=== PATIENT | male | born 1950 | race Caucasian/White ===

== ENCOUNTER 2018-10-10 17:08 | Inpatient (IN) | payer MEDICARE, MEDICAID ==
--- OUTSIDE RECORDS SUMMARY | 2018-10-10 17:12 | XMS REPORT | Continuity of Care Document ---
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 Kalyn Benjamin NP Primary Care Physician Unavailable Payers Date Identification Numbers Payment Provider Subscriber Policy Number: [id number] Medicare Gerardo Adams PayID: [id number] [address] [place] [address] Policy Number: [id number] Medicaid Gerardo Adams PayID: [id number] [address] [place] [address] Advance Directives Description No Information Available Problems Date Description Provider Status Onset: 07/25/2017 Essential thrombocythemia Kalyn Benjamin, SURGICAL SERVICES COORDINATOR Active Onset: 07/25/2017 Combined form of senile cataract Kalyn Benjamin, SURGICAL SERVICES COORDINATOR Active Onset: 07/25/2017 Tear film insufficiency ClKalyn jerome, SURGICAL SERVICES COORDINATOR Active Onset: 07/25/2017 Tobacco user Kalyn Benjamin, SURGICAL SERVICES COORDINATOR Active Onset: 07/25/2017 Chronic pain Kalyn Benjamin SURGICAL SERVICES COORDINATOR Active Note: no longer followed by Dr. 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 Onset: 08/28/2017 Chronic myeloproliferative disease Luisana De Leon DO Active Onset: 07/16/2018 Difficulty passing urine Kalyn Benjamin FNP Active Onset: 10/05/2018 Anemia Jose Xiong MD, FACS Active Family History Date Family Member(s) Observation Comments Father due to Pancreatic Cancer () Mother Unknown [place] [facility] Maternal Grandfather due to Unknown Causes () Maternal Grandmother due to Unknown Causes () Social History Type Date Description Comments Sex Unknown Marital Status Single Lives With Alone Diet Patient follows no dietary restrictions 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 Tobacco Use Start: Unknown End: Former Cigarette Smoker on nicotine patch Unknown since beginning of December 2016 ETOH Use Currently consumes 1 beer every few alcohol days Recreational Drug Use Marijuana Tobacco Use Start: Unknown Light tobacco smoker (10 or fewer cigarettes/day) Smoking Status Reviewed: 10/05/18 Light tobacco smoker (10 or fewer cigarettes/day) Allergies, Adverse Reactions, Alerts Date Description Reaction Status Severity Comments 12/29/2016 Tylenol nose runs, congestion Active Medications Medication Date Status Form Strength Qnty SIG Indications Ordering Provider Miralax Active Powder 3350NF 1020uni mix 238 Inga, Beata ts gram bottle Jose, of rafiq FULLER FACS in 64 ounce of gatorade. drink an 8oz glass every 15-20 minutes until gone. Dulcolax Active Tablets DR 5mg 4tabs at 3pm take Beata Xiong 2 dulcolax Jose, tablets at DONTA FULLER 9pm take 2 dulcolax tablets Nicotine Active Patches 14mg/24HR 28units one a day F17.210 ClKenneth jerome 24HR on dry [facility]le [facility] arms, chest or back x 2 month then decrease to 7 mcg daily Z71.6 Aspirin 07/16/2018 Active Tablets 81mg 90tabs [address] Cassidy every day GERALD Mccain Flomax 07/16/2018 Active Capsules 0.4mg 90caps one PO qd R39. Jina Benjamin FNP Norvasc 07/16/2018 Active Tablets 5mg 90tabs one PO qd I10 Kalyn Benjamin FNP Pravastatin Active Tablets 40mg 90tabs Take One Cassidy Sodium Tablet By Omari Mccain Every SURGICAL SERVICES COORDINATOR Day Lisinopril Active Tablets 40mg 90tabs Take One Clune, Tablet By Kalyn Mouth Every SURGICAL SERVICES COORDINATOR Day Omeprazole Active Capsules 40mg 30caps Take One Clune, DR Capsule By Kalyn, Mouth Every SURGICAL SERVICES COORDINATOR Day Tizanidine HCL Active Tablets 4mg 30tabs Take One R51 Clune, Tablet By Kalyn Mouth AT [facility] Bedtime For Sleep as Needed Nicotine 04/16/2018 Hx Patches 21mg/ 42units one a day on F17. Clune, - 24HR 24HR dry hairless [facility] skin of SURGICAL SERVICES COORDINATOR arms, chest or back x 2 month then decrease to 14 mcg daily Amitriptyline 02/28/2018 Hx Tablets 25mg 60tabs 1 by mouth G47. Clune, HCL - [facility] at bedtime SURGICAL SERVICES COORDINATOR if no improvement in 2-3 days, then increase to 2 at night. Nicotine 12/14/2017 Hx Patches 21mg/ 28units one a day on Clune, - 24HR 24HR dry [facility]less [facility] 02/28/2018 skin of SURGICAL SERVICES COORDINATOR arms, chest or back Ergocalciferol 10/29/2017 Hx Capsules 08173 6caps 1 cap po q Boufal, - Unit week Luisana, DO 02/28/2018 Folic Acid 09/22/2017 Hx Tablets 1mg 90tabs 1 tabl by Boufal, - mouth every Luisana, DO 10/12/2017 day Hydrea 08/28/2017 Hx Capsules 500mg 30caps 1 tabl po Boufal, - qod/qd Luisana, DO 10/27/2017 depending on blood work Azithromycin 06/20/2017 Hx Tablets 250mg 6tabs 2 tab by Karley Estrada, - mouth day 1 0 M.D. 06/25/2017 1 tab by mouth day 2-5 Ventolin HFA 06/20/2017 Hx Aerosol 108(9 18gm 2 puffs Karley Estrada, - 0Base every 4 0 M.D. 07/04/2017 ) hours as mcg/A needed for ct cough and wheeze Nicotine 03/28/2017 Hx Patches 7mg/2 21units one patch Z72. Cljustus, - 24HR 4HR placed on 0 [facility], 05/31/2017 dry skin SURGICAL SERVICES COORDINATOR each day Celebrex 01/10/2017 Hx Capsules 100mg 60caps 1 by mouth G89. Clune, - twice a day 29 [facility], 03/28/2017 SURGICAL SERVICES COORDINATOR Trazodone HCL 01/10/2017 Hx Tablets 100mg 90tabs 1 by mouth G47. Clune, - Unknown at bedtime 9 [facility], SURGICAL SERVICES COORDINATOR Seroquel 12/29/2016 Hx Tablets 50mg 90tabs 2-3 tablets G47. Cassidy, - an hour 9 [facility], 01/10/2017 prior to SURGICAL SERVICES COORDINATOR bedtime *in place of Trazodone Trazodone HCL Hx Tablets 100mg 1 by mouth G47. Unknown - at bedtime 9 12/29/2016 Diazepam Hx Tablets 5mg 30tabs 1 by mouth Joseune, - at night [facility], 08/09/2017 SURGICAL SERVICES COORDINATOR Oxycodone HCL Hx 1 tablet by Unknown ER - mouth every 01/10/2017 6 hours Tizanidine HCL Hx Tablets 4mg Take 1 2 1 Unknown - Tablet By 06/20/2017 Mouth Every Evening as Directed Methadone HCL Hx Tablets 5mg Take One Unknown - Tablet By 02/28/2018 Mouth Every 8 Hours as Directed Maximum Daily Dose Ambien Hx Tablets 5mg take one tab Unknown - Unknown by mouth at night as needed as needed insomnia Tizanidine HCL Hx Tablets 4mg Take 1 2 1 Unknown - Tablet By 08/09/2017 Mouth Every Evening as Directed Ambien Hx Tablets 5mg 1 tab by Unknown - mouth every 02/28/2018 night at bedtime as needed insomnia reference #: [id number] Immunizations CPT Code Status Date Vaccine Lot # [id number] Given 07/13/2018 Influenza High Dose 69201 Given 01/23/2017 Pneumococcal Conjugate Vaccine 13 Valent For [id number] Intramuscular Use Vital Signs Date Vital Result Comment 10/05/2018 11:49am BP Systolic 111 mmHg BP Diastolic 72 mmHg Heart Rate 90 /min Respiratory Rate 18 /min Height 70 inches 5'10" Weight 149.00 lb BMI (Body Mass Index) 21.4 kg/m2 BSA (Body Surface Area) 1.84 m2 [place] body weight in kilograms 75 kg 10/02/2018 3:08pm BP Systolic 134 mmHg BP Diastolic 76 mmHg Body Temperature 97.5 F Heart Rate 82 /min Respiratory Rate 18 /min Height 70 inches 5'10" Weight 153.00 lb BMI (Body Mass Index) 22.0 kg/m2 BSA (Body Surface Area) 1.86 m2 [place] body weight in kilograms 75 kg O2 % BldC Oximetry 94 % 07/16/2018 9:57am BP Systolic Sitting Left Arm 138 mmHg BP Diastolic Sitting Left Arm 82 mmHg Heart Rate 88 /min Respiratory Rate 18 /min ` Height 70 inches 5'10" Weight 153.12 lb BMI (Body Mass Index) 22.0 kg/m2 BSA (Body Surface Area) 1.86 m2 [place] body weight in kilograms 75 kg 04/16/2018 9:45am BP Systolic Sitting Left Arm 134 mmHg BP Diastolic Sitting Left Arm 86 mmHg Heart Rate 88 /min Respiratory Rate 18 /min Height 70 inches 5'10" Weight 142.00 lb BMI (Body Mass Index) 20.4 kg/m2 BSA (Body Surface Area) 1.80 m2 [place] body weight in kilograms 75 kg 02/28/2018 11:26am BP Systolic Sitting Left Arm 140 mmHg BP Diastolic Sitting Left Arm 80 mmHg Heart Rate 80 /min Respiratory Rate 18 /min Height 70 inches 5'10" Weight 142.38 lb BMI (Body Mass Index) 20.4 kg/m2 BSA (Body Surface Area) 1.81 m2 [place] body weight in kilograms 75 kg 10/27/2017 8:51am BP Systolic 177 mmHg pt states did not take b/p med. BP Diastolic 102 mmHg pt states did not take b/p med. Body Temperature 97.9 F Heart Rate 77 /min Weight 141.00 lb O2 % BldC Oximetry 96 % 10/12/2017 9:49am BP Systolic Sitting Left Arm 126 mmHg BP Diastolic Sitting Left Arm 74 mmHg Heart Rate 76 /min Respiratory Rate 18 /min Height 70 inches 5'10" Weight 141.00 lb BMI (Body Mass Index) 20.2 kg/m2 BSA (Body Surface Area) 1.80 m2 [place] body weight in kilograms 75 kg 09/22/2017 8:59am BP Systolic 128 mmHg BP Diastolic 70 mmHg Body Temperature 97.1 F Heart Rate 164 /min Weight 146.38 lb O2 % BldC Oximetry 95 % 08/28/2017 9:01am BP Systolic 130 mmHg BP Diastolic 78 mmHg Body Temperature 98.0 F Heart Rate 67 /min Weight 138.00 lb O2 % BldC Oximetry 97 % 08/09/2017 9:01am BP Systolic 109 mmHg BP Diastolic 62 mmHg Body Temperature 98.2 F Heart Rate 83 /min Weight 138.38 lb O2 % BldC Oximetry 94 % 07/25/2017 12:00pm BP Systolic 126 mmHg BP Diastolic 73 mmHg Body Temperature 98.0 F Heart Rate 69 /min Height 70 inches 5'10" Weight 139.00 lb BMI (Body Mass Index) 19.9 kg/m2 BSA (Body Surface Area) 1.79 m2 [place] body weight in kilograms 75 kg O2 % BldC Oximetry 96 % 06/20/2017 3:30pm BP Systolic Sitting Right Arm 140 mmHg BP Diastolic Sitting Right Arm 72 mmHg Body Temperature 97.8 F Heart Rate 97 /min Height 70 inches 5'10" Weight 138.25 lb BMI (Body Mass Index) 19.8 kg/m2 BSA (Body Surface Area) 1.78 m2 [place] body weight in kilograms 75 kg O2 % BldC Oximetry 97 % 04/24/2017 9:45am BP Systolic 144 mmHg BP Diastolic 86 mmHg Body Temperature 96.0 F Heart Rate 65 /min Height 70 inches 5'10" Weight 138.00 lb BMI (Body Mass Index) 19.8 kg/m2 BSA (Body Surface Area) 1.78 m2 [place] body weight in kilograms 75 kg O2 % BldC Oximetry 97 % 03/28/2017 9:43am BP Systolic 134 mmHg BP Diastolic 82 mmHg Heart Rate 61 /min Height 70 inches 5'10" Weight 139.00 lb BMI (Body Mass Index) 19.9 kg/m2 BSA (Body Surface Area) 1.79 m2 [place] body weight in kilograms 75 kg 01/23/2017 11:14am BP Systolic 118 mmHg BP Diastolic 76 mmHg Body Temperature 97.9 F Heart Rate 77 /min Weight 139.50 lb 01/10/2017 9:45am BP Systolic Sitting Left Arm 140 mmHg BP Diastolic Sitting Left Arm 88 mmHg Heart Rate 72 /min Respiratory Rate 18 /min Height 70 inches 5'10" Weight 137.00 lb BMI (Body Mass Index) 19.7 kg/m2 BSA (Body Surface Area) 1.78 m2 [place] body weight in kilograms 75 kg 12/29/2016 8:50am BP Systolic Sitting Left Arm 138 mmHg BP Diastolic Sitting Left Arm 84 mmHg Height 70 inches 5'10" Weight 137.38 lb BMI (Body Mass Index) 19.7 kg/m2 BSA (Body Surface Area) 1.78 m2 [place] body weight in kilograms 75 kg Results Test Date Facility Test Result H/L Range Note Anca AB Ser 09/24/2018 [facility] C-Anca Negative Negative [phone] P-Anca Negative Negative 1 Laboratory test 09/24/2018 [facility] Pathologist Review (SEE NOTE) 2 finding [phone] Erythrocyte Sed Rate 68 mm/Hr High 0-20 3 Complement C3 140 mg/dL 75 - 175 4 Complement C4 44 mg/dL Abnormal 14 - 40 5 Comp Metabolic Panel 09/24/2018 [facility] Sodium 137 mmol/L N 135-145 [phone] Chloride 105 mmol/L N 101-111 Co2 Carbon Dioxide 26 mmol/L N 22-32 Glucose 107 mg/dL High 70-100 Blood Urea Nitrogen 11 mg/dL N 6-24 Creatinine 1.09 mg/dL N 0.67-1.17 BUN/Creatinine Ratio 10.1 N 8-20 Calcium 9.9 mg/dL N 8.6-10.3 Total Protein 7.3 g/dL N 6.4-8.9 Albumin 4.6 g/dL N 3.2-5.2 Globulin 2.7 g/dL N 2-4 Albumin/Globulin Ratio 1.7 N 1-3 Total Bilirubin 0.30 mg/dL N 0.2-1.0 Alkaline Phosphatase 96 U/L N 34-104 Alt 10 U/L N 7-52 Ast 21 U/L N 13-39 Egfr Non- 66.9 >60 Egfr 80.9 >60 6 Potassium 5.8 mmol/L High 3.5-5.0 Anion Gap 6 mmol/L N 2-11 Laboratory test 09/24/2018 [facility] C Reactive Protein 2.82 mg/L N <8.01 finding [phone] Cell Morphology 09/24/2018 [facility] Hypochromasia 2 + [phone] Polychromasia 1+ Anisocytosis 1+ Elliptocyte 1+ CBC Auto 09/24/2018 [facility] White Blood 19.2 10^3/ uL High 3.5-10.8 Diff [phone] Count Red Blood Count 2.65 10^6/uL Low 4.00-5.40 Hemoglobin 7.6 g/dL Low 14.0-18.0 Hematocrit 25 % Low 42-52 Mean Corpuscular Volume 93 fL N 80-94 Mean Corpuscular Hemoglobin 29 pg N 27-31 Mean Corpuscular HGB Conc 31 g/dL N 31-36 Red Cell Distribution Width 19 % High 10.5-15 Platelet Count 1301 10^3/uL High 150-450 Mean Platelet Volume 9.5 fL N 7.4-10.4 Abs Neutrophils 12.7 10^3/uL High 1.5-7.7 Abs Lymphocytes 4.0 10^3/uL N 1.0-4.8 Abs Monocytes 1.9 10^3/uL High 0-0.8 Abs Eosinophils 0.2 10^3/uL N 0-0.6 Abs Basophils 0.4 10^3/uL High 0-0.2 Abs Nucleated RBC 0.2 10^3/uL Granulocyte % 66.1 % Lymphocyte % 20.9 % Monocyte % 10.0 % Eosinophil % 1.1 % Basophil % 1.9 % Nucleated Red Blood Cells % 0.8 Basic Metabolic Panel 04/10/[address] [facility] [address] Glucose 76 mg/dL N 74- 106 7 [address] [place], [place] [id number] [phone] BUN 12 mg/dL N 7-18 Creatinine 1.1 mg/dL N 0.6-1.3 Glom Filtration Rate, Estimate >60 mL/min >60 If >60 mL/min >60 8 BUN/Creat 10.9 ratio Sodium 140 mmol/L N 136-145 Potassium 4.0 mmol/L N 3.5-5.1 Chloride 104 mmol/L N 98-107 Carbon Dioxide 30 mmol/L N 21-32 Anion Gap 6 mEq/L Low 8-16 Calcium 9.3 mg/dL N 8.5-10.1 CBS W/Automated 10/27/2017 [facility] White Blood 12.1 K/uL High 3.4-10.5 [address] [place] [address] [phone] Red Blood Count 4.29 M/uL N 4.20-5.80 Hemoglobin 13.2 gm/dL N 12.8-17.0 Hematocrit 39.3 % N 38.0-48.0 Mean Cell Volume 91.6 fl N 80.0-96.0 Mean Corpuscular HGB 30.8 pg N 27.0-33.0 Mean Corpuscular HGB Conc 33.6 g/dL N 31.7-36.0 Platelet Count 906 K/uL High 155-360 Red Cell Distri Width SD 52.7 fl High 36-51 Red Cell Distri Width %CV 16.3 % High 11.6-15.8 Mean Platelet Volume 10.7 fL High 6.6-10.6 Neut% 59.2 % N 33.0-73.0 Lymph % 25.4 % N 20.0-42.0 Archer % 13.8 % High 0.0-10.0 Eo% 1.3 % N 0.0-6.6 Bas% 0.3 % N 0.0-1.1 Neut# 7.14 K/uL High 1.8-7.0 Lymph # 3.07 K/uL N 1.0-4.0 Archer # 1.67 K/uL High 0.0-0.8 Eos # 0.16 K/uL N 0.0-0.5 Baso # 0.04 K/uL N 0.0-0.1 Comprehensive Metabolic 10/27/2017 [facility] Glucose 67 mg/dL Low 74-[address] [place] [address] [phone] BUN 8 mg/dL N 7-18 Creatinine 1.0 mg/dL N 0.6-1.3 Glom Filtration Rate, Estimate >60 mL/min >60 If >60 mL/min >60 10 BUN/Creat 8.0 ratio Sodium 136 mmol/L N 136-145 Potassium 4.4 mmol/L N 3.5-5.1 Chloride 101 mmol/L N 98-107 Carbon Dioxide 29 mmol/L N 21-32 Anion Gap 6 mEq/L Low 8-16 Calcium 9.5 mg/dL N 8.5-10.1 Total Protein 8.2 g/dL N 6.4-8.2 Albumin 4.2 g/dL N 3.4-5.0 Globulin 4.0 g/dL N 1.9-4.3 Alb/Glob 1.1 ratio Bilirubin,Total 0.3 mg/dL N 0.2-1.0 Sgot/Ast 24 U/L N 15-37 SGPT/Alt 16 U/L N 12-78 Alkaline Phosphatase 102 U/L N 45-117 Laboratory 10/27/2017 [facility] Vitamin 10.5 Low 30.0-100.0 11 test finding [address] D,25-Hydroxy ng/mL [place], [place] [id number] [phone] Iron-Tibc-%Sat 10/27/2017 [facility] Serum Iron 95 N 65-[address] g/[place] [address] [phone] Total Iron Binding Capacity 349 g/dL N 250-450 Transferrin %Saturation 27 % N 12-57 Laboratory test 10/27/2017 [facility] Ferritin 92 ng/mL N 26-388 finding [address] [place] [address] [phone] Slide Review 10/27/2017 [facility] Slide Review (SEE NOTE) [address] [place] [address] [phone] RBC Morphology 10/27/2017 [facility] Anisocytosis 1+ Only [address] [place] [address] [phone] Macrocytosis 0-1+ Target Cells 0-1+ Acanthocytes 0-1+ LDL Cholesterol 10/12/[address] [facility] [address] Cholesterol 246 mg/dL High < 200 13, [address] [place] [address] [phone] Triglycerides 161 mg/dL High <150 15 HDL Cholesterol 46 mg/dL >40 16 LDL-Cholesterol 168 mg/dL < 100 17 CBS W/Automated 09/22/2017 [facility] White Blood 11.7 K/uL High 3.4-10.5 [address] [place] [address] [phone] Red Blood Count 3.61 M/uL Low 4.20-5.80 Hemoglobin 11.2 gm/dL Low 12.8-17.0 Hematocrit 33.7 % Low 38.0-48.0 Mean Cell Volume 93.4 fl N 80.0-96.0 Mean Corpuscular HGB 31.0 pg N 27.0-33.0 Mean Corpuscular HGB Conc 33.2 g/dL N 31.7-36.0 Platelet Count 933 K/uL High 155-360 Red Cell Distri Width SD 54.1 fl High 36-51 Red Cell Distri Width %CV 16.3 % High 11.6-15.8 Mean Platelet Volume 10.3 fL N 6.6-10.6 Neut% 57.1 % N 33.0-73.0 Lymph % 26.9 % N 20.0-42.0 Archer % 12.0 % High 0.0-10.0 Eo% 3.6 % N 0.0-6.6 Bas% 0.4 % N 0.0-1.1 Neut# 6.67 K/uL N 1.8-7.0 Lymph # 3.15 K/uL N 1.0-4.0 Archer # 1.40 K/uL High 0.0-0.8 Eos # 0.42 K/uL N 0.0-0.5 Baso # 0.05 K/uL N 0.0-0.1 Iron-Tibc-%Sat 09/22/2017 [facility] Serum Iron 56 g/dL Low 65-175 [address] [place] [address] [phone] Total Iron Binding Capacity 306 g/dL N 250-450 Transferrin %Saturation 18 % N 12-57 Laboratory test 09/22/2017 [facility] Ferritin 78 ng/mL N 26-388 finding [address] [place] [address] [phone] Vitamin B12 And 09/22/2017 [facility] Vitamin B12 660 pg/mL N 193-986 Folate [address] [place] [address] [phone] Folic Acid 19.1 ng/mL High 3.1-17.5 Laboratory 09/22/2017 [facility] Vitamin 15.2 Low 30.0-100.0 19 test finding [address] D,25-Hydroxy ng/[place] [address] [phone] Slide Review (SEE NOTE) 20 CBS W/Automated 09/04/2017 [facility] White Blood 11.8 K/uL High 3.4-10.5 [address] [place] [address] [phone] Red Blood Count 4.31 M/uL N 4.20-5.80 Hemoglobin 13.1 gm/dL N 12.8-17.0 Hematocrit 39.8 % N 38.0-48.0 Mean Cell Volume 92.3 fl N 80.0-96.0 Mean Corpuscular HGB 30.4 pg N 27.0-33.0 Mean Corpuscular HGB Conc 32.9 g/dL N 31.7-36.0 Platelet Count 1063 K/uL High 155-360 Red Cell Distri Width SD 49.5 fl N 36-51 Red Cell Distri Width %CV 15.1 % N 11.6-15.8 Mean Platelet Volume 10.1 fL N 6.6-10.6 22 Neut# 7.48 K/uL High 1.8-7.0 Lymph # 2.93 K/uL N 1.0-4.0 Archer # 1.10 K/uL High 0.0-0.8 Eos # 0.19 K/uL N 0.0-0.5 Baso # 0.06 K/uL N 0.0-0.1 Comprehensive Metabolic 09/04/2017 [facility] Glucose 135 mg/dL High 74-[address] [place] [address] [phone] BUN 22 mg/dL High 7-18 Creatinine 1.1 mg/dL N 0.6-1.3 Glom Filtration Rate, Estimate >60 mL/min >60 If >60 mL/min >60 23 BUN/Creat 20.0 ratio Sodium 136 mmol/L N 136-145 Potassium 4.4 mmol/L N 3.5-5.1 Chloride 101 mmol/L N 98-107 Carbon Dioxide 28 mmol/L N 21-32 Anion Gap 7 mEq/L Low 8-16 Calcium 9.4 mg/dL N 8.5-10.1 Total Protein 8.1 g/dL N 6.4-8.2 Albumin 4.2 g/dL N 3.4-5.0 Globulin 3.9 g/dL N 1.9-4.3 Alb/Glob 1.1 ratio Bilirubin,Total 0.2 mg/dL N 0.2-1.0 Sgot/Ast 31 U/L N 15-37 SGPT/Alt 23 U/L N 12-78 Alkaline Phosphatase 92 U/L N 45-117 Iron-Tibc-%Sat 09/04/2017 [facility] Serum Iron 85 g/dL N 65-175 [address] [place] [address] [phone] Total Iron Binding Capacity 352 g/dL N 250-450 Transferrin %Saturation 24 % N 12-57 Laboratory test finding 09/04/2017 [facility] Ferritin 141 ng/mL N 26-388 [address] [place] [address] [phone] LDH 486 U/L High 87-241 Gamma Glutamyl Transpeptidase 51 U/L N 5-85 Sedimentation Rate 12 mm/hr N 0-20 24 Slide Review 09/04/2017 [facility] Slide Review DIFF ORDERED [address] [place] [address] [phone] Laboratory test 09/04/2017 [facility] Path Review: <pending> finding [address] [place] [address] [phone] Differential-WBC 09/04/2017 [facility] Total Cells 100 #CELLS Confirm [address] [place] [address] [phone] Neutrophils% 68 % N 33-73 Lymph% 22 % N 20-42 Monocyte% 9 % N 0-10 Eosinophil% 1 % N 0-5 Platelet Estimate MARKED INCREASE Anisocytosis 1+ [place] Cells 1+ CBS W/Automated 08/16/2017 [facility] White Blood 15.1 K/uL High 3.4-10.[address] [place] [address] [phone] Red Blood Count 4.24 M/uL N 4.20-5.80 Hemoglobin 12.8 gm/dL N 12.8-17.0 Hematocrit 39.1 % N 38.0-48.0 Mean Cell Volume 92.2 fl N 80.0-96.0 Mean Corpuscular HGB 30.2 pg N 27.0-33.0 Mean Corpuscular HGB Conc 32.7 g/dL N 31.7-36.0 Platelet Count 1107 K/uL High 155-360 Red Cell Distri Width SD 49.0 fl N 36-51 Red Cell Distri Width %CV 14.9 % N 11.6-15.8 Mean Platelet Volume 10.0 fL N 6.6-10.6 Neut% 54.1 % N 33.0-73.0 Lymph % 30.1 % N 20.0-42.0 Archer % 13.2 % High 0.0-10.0 Eo% 2.1 % N 0.0-6.6 Bas% 0.5 % N 0.0-1.1 Neut# 8.18 K/uL High 1.8-7.0 Lymph # 4.55 K/uL High 1.0-4.0 Archer # 2.00 K/uL High 0.0-0.8 Eos # 0.32 K/uL N 0.0-0.5 Baso # 0.08 K/uL N 0.0-0.1 Slide Review 08/16/2017 [facility] Slide Review (SEE NOTE) 25 [address] [place] [address] [phone] Laboratory test finding 08/16/2017 [facility] Path Review: <pending> [address] [place] [address] [phone] RBC Morphology Only 08/16/2017 [facility] Hypochromia 1+ [address] [place] [address] [phone] Target Cells 0-1+ Tear Drop Cells 1+ Comprehensive Metabolic 07/25/2017 [facility] Glucose 78 mg/dL N 74-106 26 Panel [address] [place] [address] [phone] BUN 10 mg/dL N 7-18 Creatinine 0.9 mg/dL N 0.6-1.3 Glom Filtration Rate, Estimate >60 mL/min >60 If >60 mL/min >60 27 BUN/Creat 11.1 ratio Sodium 137 mmol/L N 136-145 Potassium 4.3 mmol/L N 3.5-5.1 Chloride 102 mmol/L N 98-107 Carbon Dioxide 27 mmol/L N 21-32 Anion Gap 8 mEq/L N 8-16 Calcium 8.8 mg/dL N 8.5-10.1 Total Protein 7.8 g/dL N 6.4-8.2 Albumin 3.9 g/dL N 3.4-5.0 Globulin 3.9 g/dL N 1.9-4.3 Alb/Glob 1.0 ratio Bilirubin,Total 0.3 mg/dL N 0.2-1.0 Sgot/Ast 24 U/L N 15-37 SGPT/Alt 22 U/L N 12-78 Alkaline Phosphatase 109 U/L N 45-117 CBS W/Automated 07/25/2017 [facility] White Blood 15.9 K/uL High 3.4-10.[address] [place] [address] [phone] Red Blood Count 3.85 M/uL Low 4.20-5.80 Hemoglobin 12.1 gm/dL Low 12.8-17.0 Hematocrit 35.7 % Low 38.0-48.0 Mean Cell Volume 92.7 fl N 80.0-96.0 Mean Corpuscular HGB 31.4 pg N 27.0-33.0 Mean Corpuscular HGB Conc 33.9 g/dL N 31.7-36.0 Platelet Count 1009 K/uL High 155-360 28 Red Cell Distri Width SD 49.3 fl N 36-51 Red Cell Distri Width %CV 14.9 % N 11.6-15.8 Mean Platelet Volume 10.2 fL N 6.6-10.6 Neut% 57.8 % N 33.0-73.0 Lymph % 26.5 % N 20.0-42.0 Archer % 13.3 % High 0.0-10.0 Eo% 1.8 % N 0.0-6.6 Bas% 0.6 % N 0.0-1.1 Neut# 9.21 K/uL High 1.8-7.0 Lymph # 4.22 K/uL High 1.0-4.0 Archer # 2.11 K/uL High 0.0-0.8 Eos # 0.28 K/uL N 0.0-0.5 Baso # 0.09 K/uL N 0.0-0.1 Laboratory test 07/25/2017 [facility] Path Review: <pending> finding [address] [place] [id number] [phone] Slide Review 07/25/2017 [facility] Slide Review (SEE NOTE) [address] [place] [phone] Laboratory test 07/25/2017 [facility] Ferritin 110 ng/mL N 26-[address] [place] [id number] [phone] Afp Tumor Marker,Serum 1.5 ng/mL 0.0-8.3 30 Gamma Glutamyl Transpeptidase 46 U/L N 5-85 Sedimentation Rate 8 mm/hr N 0-20 31 LDH 442 U/L High 87-241 Leukocyte Alk Phos 40 25-130 32 Iron-Tibc-%Sat 07/25/2017 [facility] Serum Iron 40 g/dL Low 65-175 [address] [place] [id number] [phone] Total Iron Binding Capacity 325 g/dL N 250-450 Transferrin %Saturation 12 % N 12-57 Laboratory test 07/20/2017 [facility] D-Dimer, < 0.22 33, [address] Quantitative ug/mL [place] [phone] Differential-WBC 07/20/2017 [facility] Total Cells 100 #CELLS Confirm [address] Counted [place] [id number] [phone] Neutrophils% 91 % High 33-73 Lymph% 4 % Low 20-42 Atypical Lymph% 2 % N 0-7 Monocyte% 3 % N 0-10 Platelet Estimate MARKED INCREASE Acanthocytes 0-1+ Path Review: 07/20/2017 [facility] Path Review: INDICATED,SLIDE [address] <SEE NOTE> GISELL Austin [phone] Slide Review 07/20/2017 [facility] Slide Review DIFF ORDERED [address] GISELL Mcguire [address] [phone] CBS 07/20/2017 [facility] White Blood 16.1 K/uL High 3.4- W/Automated [address] Count 10.5 Diff GISELL Ausitn [phone] Red Blood Count 4.47 M/uL N 4.20-5.80 Hemoglobin 13.5 gm/dL N 12.8-17.0 Hematocrit 40.3 % N 38.0-48.0 Mean Cell Volume 90.2 fl N 80.0-96.0 Mean Corpuscular HGB 30.2 pg N 27.0-33.0 Mean Corpuscular HGB Conc 33.5 g/dL N 31.7-36.0 Platelet Count 1114 K/uL High 155-360 Red Cell Distri Width SD 46.9 fl N 36-51 Red Cell Distri Width %CV 14.7 % N 11.6-15.8 Mean Platelet Volume 9.9 fL N 6.6-10.6 36 Neut# 14.01 K/uL High 1.8-7.0 Lymph # 1.42 K/uL N 1.0-4.0 Archer # 0.58 K/uL N 0.0-0.8 Eos # 0.02 K/uL N 0.0-0.5 Baso # 0.03 K/uL N 0.0-0.1 Laboratory test finding 07/20/2017 [facility] Lipase 129 U/L N 56-289 [address] [place] [address] [phone] Comprehensive Metabolic 07/20/2017 [facility] Glucose 115 mg/dL High 74-106 Panel [address] [place] [address] [phone] BUN 14 mg/dL N 7-18 Creatinine 0.9 mg/dL N 0.6-1.3 Glom Filtration Rate, Estimate >60 mL/min >60 If >60 mL/min >60 37 BUN/Creat 15.5 ratio Sodium 134 mmol/L Low 136-145 Potassium 4.1 mmol/L N 3.5-5.1 Chloride 101 mmol/L N 98-107 Carbon Dioxide 27 mmol/L N 21-32 Anion Gap 6 mEq/L Low 8-16 Calcium 9.9 mg/dL N 8.5-10.1 Total Protein 8.8 g/dL High 6.4-8.2 Albumin 4.6 g/dL N 3.4-5.0 Globulin 4.2 g/dL N 1.9-4.3 Alb/Glob 1.1 ratio Bilirubin,Total 0.4 mg/dL N 0.2-1.0 Sgot/Ast 26 U/L N 15-37 SGPT/Alt 26 U/L N 12-78 Alkaline Phosphatase 117 U/L N 45-117 1 Negative for cANCA and pANCA patterns by immunofluorescence. ADDITIONAL INFORMATION This test was developed and its performance characteristics determined by [facility] in a manner consistent with CLIA requirements. This test has not been cleared or approved by the U.S. Food and Drug Administration. Test Performed by: [facility] [address] [place] [address] 2 Leukocytosis with absolute neutrophilia and severe thrombocytosis most suggestive of a myeloproliferative disorder (likely essential thrombocythemia). Mild normocytic anemia noted. A concurrent inflammatory/reactive process should be ruled out. Additional studies are warranted. Reviewed by Dr. Justa Mcgraw notified of these results on 08/24/2018 at approximately 4:27 PM CORRECTED REPORT --- Corrected on 09/24/18 160 --- Path Review previously reported as: Leukocytosis with absolute neutrophilia and severe thrombocytosis most suggestive of a myeloproliferative disorder (likely essential thrombocytosis). Mild normocytic anemia noted. A concurrent inflammatory/reactive process should be ruled out. Additional studies are warranted. Reviewed by Dr. Marr CORRECTED REPORT --- Corrected on 09/24/18 1626 --- Path Review previously reported as: Leukocytosis with absolute neutrophilia and severe thrombocytosis most suggestive of a myeloproliferative disorder (likely essential thrombocythemia). Mild normocytic anemia noted. A concurrent inflammatory/reactive process should be ruled out. Additional studies are warranted. Reviewed by Dr. Marr CORRECTED REPORT --- Corrected on 09/24/18 1609 --- Path Review previously reported as: Leukocytosis with absolute neutrophilia and severe thrombocytosis most suggestive of a myeloproliferative disorder (likely essential thrombocytosis). Mild normocytic anemia noted. A concurrent inflammatory/reactive process should be ruled out. Additional studies are warranted. Reviewed by Dr. Marr 3 Test Performed by: [facility] [address] [place], [place] [address] Owen Marr M.D. Director of Laboratory 4 Test Performed by: [facility] [address] [place] [address] 5 Test Performed by: [facility] [place] [address] [place] [address] 6 Because ethnic data is not always readily available, this report includes an eGFR for both -Americans and non- Americans. The National Kidney Disease Education Program (NKDEP) does not endorse the use of the MDRD equation for patients that are not between the ages of 18 and 70, are , have extremes of body size, muscle mass, or nutritional status, or are non- or non-. According to the National Kidney Foundation, irrespective of diagnosis, the stage of the disease is based on the level of kidney function: Stage Description GFR(mL/min/1.73 m(2)) 1 Kidney damage with normal or decreased GFR 90 2 Kidney damage with mild decrease in GFR 60-89 3 Moderate decrease in GFR 30-59 4 Severe decrease in GFR 15-29 5 Kidney failure <15 (or dialysis) 7 R51 HEADACHE I10 8 Note: Persistent reduction for 3 months or more in an eGFR <60 mL/min/1.73 m2 defines CKD. Patients with eGFR values >/=60 mL/min/1.73 m2 may also have CKD if evidence of persistent proteinuria is present. The original MDRD equation for estimated GFR is not valid for patients less than 18 years of age. Additional information may be found at www.kdoqi.org. 9 D47.1 D72.829 10 Note: Persistent reduction for 3 months or more in an eGFR <60 mL/min/1.73 m2 defines CKD. Patients with eGFR values >/=60 mL/min/1.73 m2 may also have CKD if evidence of persistent proteinuria is present. The original MDRD equation for estimated GFR is not valid for patients less than 18 years of age. Additional information may be found at www.kdoqi.org. 11 Vitamin D deficiency has been defined by the [place] of Medicine and an Endocrine Society practice guideline as a level of serum 25-OH vitamin D less than 20 ng/mL (1,2). The Endocrine Society went on to further define vitamin D insufficiency as a level between 21 and 29 ng/mL (2). 1. IOM ([place] of Medicine). 2010. Dietary reference intakes for calcium and D. [place]: The National Academies Press. 2. Chucho MF, Angela NC, Radha TOLLIVER, et al. Evaluation, treatment, and prevention of vitamin D deficiency: an Endocrine Society clinical practice guideline. JCEM. 2010; 96(7):1911-30. Performed at: RN - [facility] [address] [id number] Credit Analysis Manager: Mehnaz Vo MD, Phone: [phone] 12 Instrument flagged sample for slide review. Less than 10% Bands seen, no other immature WBC's seen. Platelet estimate=MARKED INCREASE 13 I10 14 Reference Guidelines*: Desirable: ........... < 200 mg/dL Borderline High: ..... 200-239 mg/dL High: ................ >=240 mg/dL * The National Cholesterol Education Program (NCEP) 15 Reference Guidelines*: Normal: ............. < 150 mg/dL Borderline High: .... 150-199 mg/dL High: ............... 200-499 mg/dL Very High: .......... > 500 mg/dL * Source: National Cholesterol Education Program (NCEP) 16 Reference Guidelines*: Low HDL: ..... < 40 mg/dL Normal: ..... 40-60 mg/dL Desirable: ... > 60 mg/dL *The National Cholesterol Education Program(NCEP) 17 Reference Guidelines*: Optimal:........... <100 mg/dL Near Optimal....... 100-129 mg/dL Borderline High.... 130-159 mg/dL High............... 160-189 mg/dL Very High.......... >=190 mg/dL * Source: National Cholesterol Education Program (NCEP) 18 D47.1 D72.829 19 Vitamin D deficiency has been defined by the [place] of Medicine and an Endocrine Society practice guideline as a level of serum 25-OH vitamin D less than 20 ng/mL (1,2). The Endocrine Society went on to further define vitamin D insufficiency as a level between 21 and 29 ng/mL (2). 1. IOM ([place] of Medicine). 2010. Dietary reference intakes for calcium and D. [place]: The National Academies Press. 2. Chucho MF, Angela ABDULLAHI, Radha TOLLIVER, et al. Evaluation, treatment, and prevention of vitamin D deficiency: an Endocrine Society clinical practice guideline. JCEM. 2010; 96(7):1911-30. Performed at: RN - [facility] [address] [id number] Credit Analysis Manager: Mehnaz Vo MD, Phone: [phone] 20 Instrument flagged sample for slide review. Less than 10% Bands seen, no other immature WBC's seen. RBC morphology essentially normal. Platelet estimate=MARKED INCREASE 21 D72.829 22 09/04/17 1600: NEUT% previously reported as: 63.6 % Amended result called to: [] - 09/04/17 at 1600 09/04/17 1600: LYMPH % previously reported as: 24.9 % Amended result called to: [] - 09/04/17 at 1600 09/04/17 1600: MONO % previously reported as: 9.4 % Amended result called to: [] 09/04/17 at 1600 09/04/17 1600: EO% previously reported as: 1.6 % Amended result called to: [] - 09/04/17 at 1600 09/04/17 1600: BAS% previously reported as: 0.5 % Amended result called to: [] 09/04/17 at 1600 23 Note: Persistent reduction for 3 months or more in an eGFR <60 mL/min/1.73 m2 defines CKD. Patients with eGFR values >/=60 mL/min/1.73 m2 may also have CKD if evidence of persistent proteinuria is present. The original MDRD equation for estimated GFR is not valid for patients less than 18 years of age. Additional information may be found at www.kdoqi.org. 24 Method: Sediplast Modified Westergren 25 Instrument flagged sample for slide review. Less than 10% Bands seen, no other immature WBC's seen. Platelet estimate=MARKED INCREASE 26 D72.829 D47.3 27 Note: Persistent reduction for 3 months or more in an eGFR <60 mL/min/1.73 m2 defines CKD. Patients with eGFR values >/=60 mL/min/1.73 m2 may also have CKD if evidence of persistent proteinuria is present. The original MDRD equation for estimated GFR is not valid for patients less than 18 years of age. Additional information may be found at www.kdoqi.org. 28 Result confirmed by repeat analysis. 29 Instrument flagged sample for slide review. Less than 10% Bands seen, no other immature WBC's seen. RBC morphology essentially normal. Platelet estimate=MARKED INCREASE 30 Normal values apply only to males and to non females. These results are not interpretable for females. Teresa ECLIA methodology. Values obtained with different assay methods or kits cannot be used interchangeably. Results cannot be interpreted as absolute evidence of the presence or absence of malignant disease. Performed at: - [facility] [address] [id number] Credit Analysis Manager: Mehnaz Vo MD, Phone: [phone] 31 Method: Sediplast Modified Westergren 32 Performed at: [facility] [address] [id number] Credit Analysis Manager: Mehnaz Vo MD, Phone: [phone] 33 STOMACH PAIN,VOMITING,LOOSE STOOL 34 <=0.49 ug/mL - Low likelihood of DIC, DVT or Pulmonary Embolism >0.49 ug/mL - Additional testing should be done to rule out DIC, DVT, or Pulmonary embolism as clinically indicated. ([facility] has established a 97.89% negative predictive value for thrombotic disease when a cutoff value of 0.5 ug/mL is used.) 35 INDICATED,SLIDE SENT Hematology Consultation Final Report Case# [id number] Final Diagnosis Review of peripheral blood smear shows moderate absolute neutrophilia and marked thrombocytosis. There is no anemia, no immature WBCs and no blasts. Bone marrow examination with cytogenetic analysis and molecular analysis is recommended to rule out rule a myeloproliferative neoplasm (MPN). [facility] 07/21/17 Gross Description Peripheral blood smear Clinical Data Thrombocytosis; stomach pain, comiting, diarrhea Akosua Fragoso MD Reported 07/21/17 at 3:21PM, Report electronically signed Performed at: [facility] [id number] [place] [id number] 07/24/17 1424: PATH REVIEW: previously reported as: INDICATED,SLIDE SENT Amended result called to: - 07/24/17 at 1424 CHECKED BY TEMABBE 36 07/20/17 1042: NEUT% previously reported as: 87.3 H % Amended result called to: [] - 07/20/17 at 1042 07/20/17 1042: LYMPH % previously reported as: 8.8 L % Amended result called to: [] - 07/20/17 at 1042 07/20/17 1042: MONO % previously reported as: 3.6 % Amended result called to: [] - 07/20/17 at 1042 07/20/17 1042: EO% previously reported as: 0.1 % Amended result called to: [] - 07/20/17 at 1042 07/20/17 1042: BAS% previously reported as: 0.2 % Amended result called to: [] - 07/20/17 at 1042 37 Note: Persistent reduction for 3 months or more in an eGFR <60 mL/min/1.73 m2 defines CKD. Patients with eGFR values >/=60 mL/min/1.73 m2 may also have CKD if evidence of persistent proteinuria is present. The original MDRD equation for estimated GFR is not valid for patients less than 18 years of age. Additional information may be found at www.kdoqi.org. Procedures Date Code Description Status 08/16/2017 70242 Diagnostic Bone Marrow, Biopsy And Aspirations Completed 05/01/2017 60781 Eye Exam New Patient Comprehensive Completed 02/23/2016 [id number] Colonoscopy Completed 02/16/2016 [id number] Colonoscopy Completed Encounters Type Date Location Provider Dx Diagnosis Office Visit 10/02/2018 Family Salazar Benjamin D64.9 Anemia, unspecified 3:15p [address] GERALD Mccain J20.9 Acute bronchitis, unspecified Office Visit 07/16/2018 Family Benjamin I10 Essential 9:30a Medicine [place], SURGICAL SERVICES COORDINATOR (primary) RD hypertension R51 Headache H53.9 Unspecified visual disturbance R39.198 Other difficulties with micturition Z71.6 Tobacco abuse counseling Office Visit 04/16/2018 Family Benjamin, I10 Essential 9:30a Medicine Asim Mccain, SURGICAL SERVICES COORDINATOR (primary) RD hypertension F17.210 Nicotine dependence, cigarettes, uncomplicated Z71.6 Tobacco abuse counseling G47.9 Sleep disorder, unspecified Office Visit 02/28/2018 Family Benjamin, G47.9 Sleep disorder, 11:30a Medicine Asim Mccain, SURGICAL SERVICES COORDINATOR unspecified RD M54.5 Low back pain R10.9 Unspecified abdominal pain Office Visit 10/27/2017 Oncology Boufal, D47.1 Chronic 9:00a Office Luisana, DO myeloproliferative disease Office Visit 10/12/2017 Family Benjamin, I10 Essential (primary) 9:30a Medicine Asim Mccain, hypertension RD SURGICAL SERVICES COORDINATOR Office Visit 09/22/2017 Oncology Boufal, D47.1 Chronic 8:30a Office Luisana, DO myeloproliferative disease B18.8 Other chronic viral hepatitis Office Visit 08/28/2017 Oncology Boufal, D47.1 Chronic 9:00a Office Luisana, DO myeloproliferative disease Office Visit 08/09/2017 Oncology Boufal, D72.829 Elevated white blood 9:00a Office Luisana, DO cell count, unspecified D47.3 Essential (hemorrhagic) thrombocythemia B18.8 Other chronic viral hepatitis Office Visit 07/25/2017 12:00p Oncology Office Boufal, D72.829 Elevated white Luisana, DO blood cell count, unspecified B18.8 Other chronic viral hepatitis D47.3 Essential (hemorrhagic) thrombocythemia D72.829 Elevated white blood cell count, unspecified D47.3 Essential (hemorrhagic) thrombocythemia B18.8 Other chronic viral hepatitis Office Visit 06/20/2017 Family Gonzalez J18.0 Bronchopneumonia, 3:15p Medicine KELLY Francois unspecified organism RD Office Visit 04/24/2017 Family Benjamin, 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 10: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 [facility] [place] [facility], subcu RD , SURGICAL SERVICES COORDINATOR of trunk H02.9 Unspecified disorder of eyelid Office Visit 03/28/2017 Family Clune, G47.9 Sleep disorder, 9:30a Medicine [place] Mag[place], SURGICAL SERVICES COORDINATOR unspecified RD M54.5 Low back pain Z72.0 Tobacco use Z71.6 Tobacco abuse counseling R63.4 Abnormal weight loss Office Visit 01/23/2017 10:45a [facility] Medicine Josejusuts, Kalyn, M54.[address] SURGICAL SERVICES COORDINATOR pain G47.9 Sleep disorder, unspecified R63.4 Abnormal weight loss Z23 Encounter for immunization Office Visit 01/10/2017 9:45a [facility] Medicine Clune, G89.[address] Jenniferleigh, SURGICAL SERVICES COORDINATOR pain G47.9 Sleep disorder, unspecified Office Visit 12/29/2016 Family Cassidy, F17.210 Nicotine 9:00a Medicine [place], SURGICAL SERVICES COORDINATOR dependence, RD cigarettes, uncomplicated G89.29 Other chronic pain G47.9 Sleep disorder, unspecified R63.4 Abnormal weight loss Office Visit 08/16/2015 1:41p Francie Patel, K29.60 Other gastritis [facility] M.D. [facility] bleeding M54.5 Low back pain Plan of Treatment Future Appointment(s):11/28/2018 9:00 am - Kalyn Benjamin FNP at [facility] RD10/05/2018 - Jose Xiong MD,FACSD64.9 Anemia, unspecifiedComments:has significant anemia and epigastic pain. i discussed the options with him and the decision is to proceed with scheduling him forColonoscopy with possible polypectomy as well as esophagogastroduodenoscopy he will need medical clearance from PCP as he reports significant dyspnea on exertion before scheduling him for the above procedures. Risks and benefits of the procedure were discussed with the patient. Risks include, but are not limited to, infection, bleeding, bowel perforation, organ or tissuedamage or malfunction, allergy, and potentially . Patient understood and agreed to the procedure.
--- OUTSIDE RECORDS SUMMARY | 2018-10-10 17:13 | XMS REPORT | Continuity of Care Document ---
:1950 External Reference #:[id number] Author Name Kalyn Benjamin FNP Address [address] [place] [address] [place] [address] Care Team Providers Name Role Phone Kalyn Benjamin NP Care Team Information Deputy Sheriff Custody Unavailable Kalyn Benjamin NP Primary Care Physician Unavailable Payers Date Identification Numbers Payment Provider Subscriber Policy Number: [id number] Medicare Gerardo Adams PayID: [id number] [address] [place] [address] Policy Number: [id number] Medicaid Gerardo Adams PayID: [id number] [address] [place] [address] Advance Directives Description No Information Available Problems Date Description Provider Status Onset: 07/25/2017 Essential thrombocythemia Kalyn Benjamin FNP Active Onset: 07/25/2017 Combined form of senile cataract Kalyn Benjamin FNP Active Onset: 07/25/2017 Tear film insufficiency aKlyn Benjamin AMMONIA DISTILLER Active Onset: 07/25/2017 Tobacco user Kalyn Benjamin FNP Active Onset: 07/25/2017 Chronic pain Kalyn Benjamin FNP Active Note: no longer followed by Dr. 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 Onset: 08/28/2017 Chronic myeloproliferative disease Luisana De Leon DO Active Onset: 07/16/2018 Difficulty passing urine Kalyn Benjamin FNP Active Family History Date Family Member(s) Observation Comments Father due to Pancreatic Cancer () Mother Unknown In detention Maternal Grandfather due to Unknown Causes () Maternal Grandmother due to Unknown Causes () Social History Type Date Description Comments Sex Unknown Marital Status Single Lives With Alone Diet Patient follows no dietary restrictions 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 drink an 8oz glass every 15-20 minutes until gone. Dulcolax Active Tablets DR 5mg 4tabs at 3pm take Inga, 019 2 dulcolax Jose, tablets at DONTA FULLER 9pm take 2 dulcolax tablets Nicotine Active Patches 14mg/24HR 28units one a day F17.210 Clune, 018 24HR on dry Jenniferle hairless igh, AMMONIA DISTILLER skin of arms, chest or back x 2 month then decrease to 7 mcg daily Z71.6 Aspirin 07/16/2018 Active Tablets 81mg 90tabs [address] Cassidy every day GERALD Mccain Flomax 07/16/2018 Active Capsules 0.4mg 90caps one PO qd R39. Cassidy 198 GERALD Mccain Norvasc 07/16/2018 Active Tablets 5mg 90tabs one PO qd I10 Kalyn Benjamin FNP Pravastatin Active Tablets 40mg 90tabs Take One Cassidy, Sodium Tablet By Omari Mccain Every AMMONIA DISTILLER Day Lisinopril Active Tablets 40mg 90tabs Take One Cassidy, Tablet By Kalyn, Mouth Every AMMONIA DISTILLER Day Omeprazole Active Capsules 40mg 30caps Take One Joseune, DR Capsule By Kalyn, Mouth Every AMMONIA DISTILLER Day Tizanidine HCL Active Tablets 4mg 30tabs Take One R51 Clune, Tablet By Kalyn, Mouth AT AMMONIA DISTILLER Bedtime For Sleep as Needed Nicotine 04/16/2018 Hx Patches 21mg/ 42units one a day on F17. Clune, - 24HR 24HR dry hairless 210 [facility], 07/16/2018 skin of AMMONIA DISTILLER arms, chest or back x 2 month then decrease to 14 mcg daily Amitriptyline 02/28/2018 Hx Tablets 25mg 60tabs 1 by mouth G47. Clune, HCL - [facility] night [facility]2018 at bedtime AMMONIA DISTILLER if no improvement in 2-3 days, then increase to 2 at night. Nicotine 12/14/2017 Hx Patches 21mg/ 28units one a day on Clune, - 24HR 24HR [facility] 02/28/2018 skin of AMMONIA DISTILLER arms, chest or back Ergocalciferol 10/29/2017 Hx Capsules 27449 6caps 1 cap po q Boufal, - Unit week Luisana, DO 02/28/2018 Folic Acid 09/22/2017 Hx Tablets 1mg 90tabs 1 tabl by Boufal, - mouth every Luiasna, DO 10/12/2017 day Hydrea 08/28/2017 Hx Capsules [...] Hx Patches 7mg/2 21units one patch Z72. Cassidy, - 24HR 4HR placed on 0 [facility], 05/31/2017 dry skin AMMONIA DISTILLER each day Celebrex 01/10/2017 Hx Capsules 100mg 60caps 1 by mouth G89. Cassidy, - twice a day 29 [facility], 03/28/2017 AMMONIA DISTILLER Trazodone HCL 01/10/2017 Hx Tablets 100mg 90tabs 1 by mouth G47. Cassidy, - Unknown at bedtime 9 [facility], AMMONIA DISTILLER Seroquel 12/29/2016 Hx Tablets 50mg 90tabs 2-3 tablets G47. Cassidy, - an hour 9 [facility], 01/10/2017 prior to AMMONIA DISTILLER bedtime *in place of Trazodone Trazodone HCL Hx Tablets 100mg 1 by mouth G47. Unknown - at bedtime 9 12/29/2016 Diazepam Hx Tablets 5mg 30tabs 1 by mouth Cassidy, - at night [facility], 08/09/2017 AMMONIA DISTILLER Oxycodone HCL Hx 1 tablet by Unknown [...] at bedtime as needed insomnia reference #: [id number] Immunizations CPT Code Status Date Vaccine Lot # [id number] Given 07/13/2018 Influenza High Dose 17028 Given 01/23/2017 Pneumococcal Conjugate Vaccine 13 Valent For [id number] Intramuscular Use Vital Signs Date Vital Result Comment 10/05/2018 11:49am BP Systolic 111 mmHg BP Diastolic 72 mmHg Heart Rate 90 /min Respiratory Rate 18 /min Height 70 inches 5'10" Weight 149.00 lb BMI (Body Mass Index) 21.4 kg/m2 BSA (Body Surface Area) 1.84 m2 [place] body weight in kilograms 75 kg 10/02/2018 3:08pm BP Systolic 134 mmHg BP Diastolic 76 mmHg Body Temperature 97.5 F Heart Rate 82 /min Respiratory Rate 18 /min Height 70 inches 5'10" Weight 153.00 lb BMI (Body Mass Index) 22.0 kg/m2 BSA (Body Surface Area) 1.86 m2 [place] body weight in kilograms 75 kg O2 % BldC Oximetry 94 % 07/16/2018 9:57am BP Systolic Sitting Left Arm 138 mmHg BP Diastolic Sitting Left Arm 82 mmHg Heart Rate 88 /min Respiratory Rate 18 /min ` Height 70 inches 5'10" Weight 153.12 lb BMI (Body Mass Index) 22.0 kg/m2 BSA (Body Surface Area) 1.86 m2 [place] body weight in kilograms 75 kg 04/16/2018 9:45am BP Systolic Sitting Left Arm 134 mmHg BP Diastolic Sitting Left Arm 86 mmHg Heart Rate 88 /min Respiratory Rate 18 /min Height 70 inches 5'10" Weight 142.00 lb BMI (Body Mass Index) 20.4 kg/m2 BSA (Body Surface Area) 1.80 m2 [place] body weight in kilograms 75 kg 02/28/2018 11:26am BP Systolic Sitting Left Arm 140 mmHg BP Diastolic Sitting Left Arm 80 mmHg Heart Rate 80 /min Respiratory Rate 18 /min Height 70 inches 5'10" Weight 142.38 lb BMI (Body Mass Index) 20.4 kg/m2 BSA (Body Surface Area) 1.81 m2 [place] body weight in kilograms 75 kg 10/27/2017 [...] kg/m2 BSA (Body Surface Area) 1.80 m2 [place] body weight in kilograms 75 kg 09/22/2017 [...] kg/m2 BSA (Body Surface Area) 1.79 m2 [place] body weight in kilograms 75 kg O2 % BldC Oximetry 96 % 06/20/2017 3:30pm BP Systolic Sitting Right Arm 140 mmHg BP Diastolic Sitting Right Arm 72 mmHg Body Temperature 97.8 F Heart Rate 97 /min Height 70 inches 5'10" Weight 138.25 lb BMI (Body Mass Index) 19.8 kg/m2 BSA (Body Surface Area) 1.78 m2 [place] body weight in kilograms 75 kg O2 % BldC Oximetry 97 % 04/24/2017 9:45am BP Systolic 144 mmHg BP Diastolic 86 mmHg Body Temperature 96.0 F Heart Rate 65 /min Height 70 inches 5'10" Weight 138.00 lb BMI (Body Mass Index) 19.8 kg/m2 BSA (Body Surface Area) 1.78 m2 [place] body weight in kilograms 75 kg O2 % BldC Oximetry 97 % 03/28/2017 9:43am BP Systolic 134 mmHg BP Diastolic 82 mmHg Heart Rate 61 /min Height 70 inches 5'10" Weight 139.00 lb BMI (Body Mass Index) 19.9 kg/m2 BSA (Body Surface Area) 1.79 m2 [place] body weight in kilograms 75 kg 01/23/2017 [...] kg/m2 BSA (Body Surface Area) 1.78 m2 [place] body weight in kilograms 75 kg 12/29/2016 8:50am BP Systolic Sitting Left Arm 138 mmHg BP Diastolic Sitting Left Arm 84 mmHg Height 70 inches 5'10" Weight 137.38 lb BMI (Body Mass Index) 19.7 kg/m2 BSA (Body Surface Area) 1.78 m2 [place] body weight in kilograms 75 kg Results Test Date Facility Test Result H/L Range Note Anca AB Ser 09/24/2018 [facility] C-Anca Negative Negative [phone] P-Anca Negative Negative 1 Laboratory test 09/24/2018 [facility] Pathologist Review (SEE NOTE) 2 finding [phone] Erythrocyte Sed Rate 68 mm/Hr High 0-20 3 Complement C3 140 mg/dL 75 - 175 4 Complement C4 44 mg/dL Abnormal 14 - 40 5 Comp Metabolic Panel 09/24/2018 [facility] Sodium 137 mmol/L N 135-145 [phone] Chloride 105 mmol/L N 101-111 Co2 Carbon [...] 6 mmol/L N 2-11 Laboratory test 09/24/2018 [facility] C Reactive Protein 2.82 mg/L N <8.01 finding [phone] Cell Morphology 09/24/2018 [facility] Hypochromasia 2 + [phone] Polychromasia 1+ Anisocytosis 1+ Elliptocyte 1+ CBC Auto 09/24/2018 [facility] White Blood 19.2 10^3/ uL High 3.5-10.8 Diff [phone] Count Red Blood Count 2.65 10^6/uL Low [...] Cells % 0.8 Basic Metabolic Panel 04/10/2018 [facility] [address] Glucose 76 mg/dL N 74- 106 7 [address] [place], [place] [id number] [phone] BUN 12 mg/dL N 7-18 Creatinine 1.1 mg/dL N 0.6-1.3 Glom Filtration Rate, Estimate >60 mL/min >60 If >60 mL/min >60 8 BUN/Creat 10.9 ratio Sodium 140 mmol/L N 136-145 Potassium 4.0 mmol/L N 3.5-5.1 Chloride 104 mmol/L N 98-107 Carbon Dioxide 30 mmol/L N 21-32 Anion Gap 6 mEq/L Low 8-16 Calcium 9.3 mg/dL N 8.5-10.1 CBS W/Automated 10/27/2017 [facility] White Blood 12.1 K/uL High 3.4-10.5 [address] [place] [address] [phone] Red Blood Count 4.29 M/uL N 4.20-5.80 [...] 33.0-73.0 Lymph % 25.4 % N 20.0-42.0 Placer % 13.8 % High 0.0-10.0 Eo% 1.3 % N 0.0-6.6 Bas% 0.3 % N 0.0-1.1 Neut# 7.14 K/uL High 1.8-7.0 Lymph # 3.07 K/uL N 1.0-4.0 Placer # 1.67 K/uL High 0.0-0.8 Eos # 0.16 K/uL N 0.0-0.5 Baso # 0.04 K/uL N 0.0-0.1 Comprehensive Metabolic 10/27/2017 [facility] Glucose 67 mg/dL Low 74-[address] [place], [place] [address] [phone] BUN 8 mg/dL N 7-18 Creatinine 1.0 [...] Phosphatase 102 U/L N 45-117 Laboratory 10/27/2017 [facility] Vitamin 10.5 Low 30.0-100.0 11 test finding [address] D,25-Hydroxy ng/mL [place], [place] [address] [phone] Iron-Tibc-%Sat 10/27/2017 [facility] Serum Iron 95 N 65-[address] g/[place] [address] [phone] Total Iron Binding Capacity 349 g/dL N 250-450 Transferrin %Saturation 27 % N 12-57 Laboratory test 10/27/2017 [facility] Ferritin 92 ng/mL N 26-[address] [place], [place] [address] [phone] Slide Review 10/27/2017 [facility] Slide Review (SEE NOTE) [address] [place], [place] [address] [phone] RBC Morphology 10/27/2017 [facility] Anisocytosis 1+ Only [address] [place] [address] [phone] Macrocytosis 0-1+ Target Cells 0-1+ Acanthocytes 0-1+ LDL Cholesterol 10/12/2017 [facility] [address] Cholesterol 246 mg/dL High < 200 13, [address] [place], [place] [address] [phone] Triglycerides 161 mg/dL High <150 15 HDL Cholesterol 46 mg/dL >40 16 LDL-Cholesterol 168 mg/dL < 100 17 CBS W/Automated 09/22/2017 [facility] White Blood 11.7 K/uL High 3.4-10.5 [address] [place] [address] [phone] Red Blood Count 3.61 M/uL Low 4.20-5.80 [...] 33.0-73.0 Lymph % 26.9 % N 20.0-42.0 Placer % 12.0 % High 0.0-10.0 Eo% 3.6 % N 0.0-6.6 Bas% 0.4 % N 0.0-1.1 Neut# 6.67 K/uL N 1.8-7.0 Lymph # 3.15 K/uL N 1.0-4.0 Placer # 1.40 K/uL High 0.0-0.8 Eos # 0.42 K/uL N 0.0-0.5 Baso # 0.05 K/uL N 0.0-0.1 Iron-Tibc-%Sat 09/22/2017 [facility] Serum Iron 56 g/dL Low 65-175 [address] [place], [place] [address] [phone] Total Iron Binding Capacity 306 g/dL N 250-450 Transferrin %Saturation 18 % N 12-57 Laboratory test 09/22/2017 [facility] Ferritin 78 ng/mL N 26-388 finding [address] [place], [place] 8750987 [phone] Vitamin B12 And 09/22/2017 [facility] Vitamin B12 660 pg/mL N 193-986 Folate [address] [place], [place] [address] [phone] Folic Acid 19.1 ng/mL High 3.1-17.5 Laboratory 09/22/2017 [facility] Vitamin 15.2 Low 30.0-100.0 19 test finding 134 [facility] D,25-Hydroxy ng/mL [place], [place] [address] [phone] Slide Review (SEE NOTE) 20 CBS W/Automated 09/04/2017 [facility] White Blood 11.8 K/uL High 3.4-10.5 [address] [place] [address] [phone] Red Blood Count 4.31 M/uL N 4.20-5.80 [...] 1.8-7.0 Lymph # 2.93 K/uL N 1.0-4.0 Placer # 1.10 K/uL High 0.0-0.8 Eos # 0.19 K/uL N 0.0-0.5 Baso # 0.06 K/uL N 0.0-0.1 Comprehensive Metabolic 09/04/2017 [facility] Glucose 135 mg/dL High 74-[address] [place] [address] [phone] BUN 22 mg/dL High 7-18 Creatinine 1.1 [...] Phosphatase 92 U/L N 45-117 Iron-Tibc-%Sat 09/04/2017 [facility] Serum Iron 85 g/dL N 65-175 [address] [place] [id number] [phone] Total Iron Binding Capacity 352 g/dL N 250-450 Transferrin %Saturation 24 % N 12-57 Laboratory test finding 09/04/2017 [facility] Ferritin 141 ng/mL N 26-388 [address] [place] [address] [phone] LDH 486 U/L High 87-241 Gamma Glutamyl Transpeptidase 51 U/L N 5-85 Sedimentation Rate 12 mm/hr N 0-20 24 Slide Review 09/04/2017 [facility] Slide Review DIFF ORDERED [address] [place] [address] [phone] Laboratory test 09/04/2017 [facility] Path Review: <pending> finding [address] [place] [address] [phone] Differential-WBC 09/04/2017 [facility] Total Cells 100 #CELLS Confirm [address] Counted [place], [place] [address] [phone] Neutrophils% 68 % N 33-73 Lymph% 22 % N 20-42 Monocyte% 9 % N 0-10 Eosinophil% 1 % N 0-5 Platelet Estimate MARKED INCREASE Anisocytosis 1+ Sledge Cells 1+ CBS W/Automated 08/16/2017 [facility] White Blood 15.1 K/uL High 3.4-10.[address] Count [facility] [place] [address] [phone] Red Blood Count 4.24 M/uL N 4.20-5.80 [...] 33.0-73.0 Lymph % 30.1 % N 20.0-42.0 Placer % 13.2 % High 0.0-10.0 Eo% 2.1 % N 0.0-6.6 Bas% 0.5 % N 0.0-1.1 Neut# 8.18 K/uL High 1.8-7.0 Lymph # 4.55 K/uL High 1.0-4.0 Placer # 2.00 K/uL High 0.0-0.8 Eos # 0.32 K/uL N 0.0-0.5 Baso # 0.08 K/uL N 0.0-0.1 Slide Review 08/16/2017 [facility] Slide Review (SEE NOTE) 25 [address] [place] [address] [phone] Laboratory test finding 08/16/2017 [facility] Path Review: <pending> [address] [place] [address] [phone] RBC Morphology Only 08/16/2017 [facility] Hypochromia 1+ [address] [place] [address] [phone] Target Cells 0-1+ Tear Drop Cells 1+ Comprehensive Metabolic 07/25/2017 [facility] Glucose 78 mg/dL N 74-106 26 Panel [address] [place] [address] [phone] BUN 10 mg/dL N 7-18 Creatinine 0.9 [...] 109 U/L N 45-117 CBS W/Automated 07/25/2017 [facility] White Blood 15.9 K/uL High 3.4-10.[address] [place] [address] [phone] Red Blood Count 3.85 M/uL Low 4.20-5.80 [...] 33.0-73.0 Lymph % 26.5 % N 20.0-42.0 Placer % 13.3 % High 0.0-10.0 Eo% 1.8 % N 0.0-6.6 Bas% 0.6 % N 0.0-1.1 Neut# 9.21 K/uL High 1.8-7.0 Lymph # 4.22 K/uL High 1.0-4.0 Placer # 2.11 K/uL High 0.0-0.8 Eos # 0.28 K/uL N 0.0-0.5 Baso # 0.09 K/uL N 0.0-0.1 Laboratory test 07/25/2017 [facility] Path Review: <pending> finding [address] [place] [address] [phone] Slide Review 07/25/2017 [facility] Slide Review (SEE NOTE) [address] [place] [address] [phone] Laboratory test 07/25/2017 [facility] Ferritin 110 ng/mL N 26-[address] [place] [address] [phone] Afp Tumor Marker,Serum 1.5 ng/mL 0.0-8.3 30 Gamma Glutamyl Transpeptidase 46 U/L N 5-85 Sedimentation Rate 8 mm/hr N 0-20 31 LDH 442 U/L High 87-241 Leukocyte Alk Phos 40 25-130 32 Iron-Tibc-%Sat 07/25/2017 [facility] Serum Iron 40 g/dL Low 65-175 [address] [place] [address] [phone] Total Iron Binding Capacity 325 g/dL N 250-450 Transferrin %Saturation 12 % N 12-57 Laboratory test 07/20/2017 [facility] D-Dimer, < 0.22 33, [address] Quantitative ug/mL [place] [address]71 [phone] Differential-WBC 07/20/2017 [facility] Total Cells 100 #CELLS Confirm [address] Counted [place] [address] [phone] Neutrophils% 91 % High 33-73 Lymph% 4 % Low 20-42 Atypical Lymph% 2 % N 0-7 Monocyte% 3 % N 0-10 Platelet Estimate MARKED INCREASE Acanthocytes 0-1+ Path Review: 07/20/2017 [facility] Path Review: INDICATED,SLIDE [address] <SEE NOTE> [place] [address] [phone] Slide Review 07/20/2017 [facility] Slide Review DIFF ORDERED [address] [place] [address] [phone] CBS 07/20/2017 [facility] White Blood 16.1 K/uL High 3.4- W/Automated [address] Count 10.5 Diff [place] [id number] [phone] Red Blood Count 4.47 M/uL N 4.20-5.80 [...] 1.8-7.0 Lymph # 1.42 K/uL N 1.0-4.0 Placer # 0.58 K/uL N 0.0-0.8 Eos # 0.02 K/uL N 0.0-0.5 Baso # 0.03 K/uL N 0.0-0.1 Laboratory test finding 07/20/2017 [facility] Lipase 129 U/L N 56-289 [address] [place], [place] 8[address]2900 [phone] Comprehensive Metabolic 07/20/2017 [facility] Glucose 115 mg/dL High 74-106 Panel [address] [place], [place] 0450[address] [phone] BUN 14 mg/dL N 7-18 Creatinine 0.9 [...] developed and its performance characteristics determined by [facility] in a manner consistent with CLIA requirements. This test has not been cleared or approved by the U.S. Food and Drug Administration. Test Performed by: [facility] [address] [facility], [place] [address] 2 Leukocytosis with absolute neutrophilia and severe [...] Additional studies are warranted. Reviewed by Dr. Sudilovsky 3 Test Performed by: [facility] [address] [place], [place] [address] Owen Marr M.D. Director of Laboratory 4 Test Performed by: [facility] [address] [place] [address] 5 Test Performed by: [facility] [address] [place] [address] 6 Because ethnic data is not always [...] D deficiency has been defined by the [place] of [employer] and an Endocrine Society practice guideline as a level of serum 25-OH vitamin D less than 20 ng/mL (1,2). The Endocrine Society went on to further define vitamin D insufficiency as a level between 21 and 29 ng/mL (2). 1. IOM ([place] of [employer]). 2010. Dietary reference intakes for calcium and D. [place]: The National Academies Press. 2. Chucho MF, Angela NC, Radha TOLLIVER, et al. Evaluation, treatment, and prevention of vitamin D deficiency: an Endocrine Society clinical practice guideline. JCEM. 2010; 96(7):1911-30. Performed at: RN - [facility] [address] [id number] Mixing Plant Dumper: Mehnaz Vo MD, Phone: [phone] Instrument flagged sample for slide review. [...] D deficiency has been defined by the [place] of [employer] and an Endocrine Society practice guideline as a level of serum 25-OH vitamin D less than 20 ng/mL (1,2). The Endocrine Society went on to further define vitamin D insufficiency as a level between 21 and 29 ng/mL (2). 1. IOM ([place] of [employer]). 2010. Dietary reference intakes for calcium and D. [place]: The National Academies Press. 2. Chucho MF, Angela ABDULLAHI, Radha TOLLIVER, et al. Evaluation, treatment, and prevention of vitamin D deficiency: an Endocrine Society clinical practice guideline. JCEM. 2010; 96(7):1911-30. Performed at: RN - [facility] [address] [id number] Mixing Plant Dumper: Mehnaz Vo MD, Phone: [phone] Instrument flagged sample for slide review. [...] 9.4 % Amended result called to: [] - 09/04/17 at 1600 09/04/17 1600: EO% previously reported as: 1.6 % Amended result called to: [] - 09/04/17 at 1600 09/04/17 1600: BAS% previously reported as: 0.5 % Amended result called to: [] - 09/04/17 at 1600 23 Note: Persistent reduction [...] or absence of malignant disease. Performed at: [facility] [address] [id number] Mixing Plant Dumper: Mehnaz Vo MD, Phone: [phone] Method: Sediplast Modified [place] 32 Performed at: [facility] [address] [id number] Mixing Plant Dumper: Mehnaz Vo MD, Phone: [phone] STOMACH PAIN,VOMITING,LOOSE STOOL 34 <=0.49 ug/mL - Low likelihood of DIC, DVT or Pulmonary Embolism >0.49 ug/mL - Additional testing should be done to rule out DIC, DVT, or Pulmonary embolism as clinically indicated. ([facility] has established a 97.89% negative predictive value for thrombotic disease when a cutoff value of 0.5 ug/mL is used.) 35 INDICATED,SLIDE SENT Hematology Consultation Final Report Case# [id number] Final Diagnosis Review of peripheral blood smear shows moderate absolute neutrophilia and marked thrombocytosis. There is no anemia, no immature WBCs and no blasts. Bone marrow examination with cytogenetic analysis and molecular analysis is recommended to rule out rule a myeloproliferative neoplasm (MPN). JSS 07/21/17 Gross Description Peripheral blood smear Clinical Data Thrombocytosis; stomach pain, comiting, diarrhea Akosua Fragoso MD Reported 07/21/17 at 3:21PM, Report electronically signed Performed at: [facility] [id number] [place] [address] 07/24/17 1424: PATH REVIEW: previously reported as: INDICATED,SLIDE SENT Amended result called to: - 07/24/17 at 1424 CHECKED BY [email or web address] 07/20/17 1042: NEUT% previously reported as: [...] [email or web address]. Procedures Date Code Description Status 08/16/2017 57535 Diagnostic Bone Marrow, Biopsy And Aspirations Completed 05/01/2017 50699 Eye Exam New Patient Comprehensive Completed 02/23/2016 93836202 Colonoscopy Completed 02/16/2016 [id number] Colonoscopy Completed Encounters Type Date Location Provider Dx Diagnosis Office Visit 10/02/2018 Family Salazar Benjamin D64.9 Anemia, unspecified 3:15p [address] GERALD Mccain J20.9 Acute bronchitis, unspecified Office Visit 07/16/2018 Family Benjamin I10 Essential 9:30a Medicine [place] GERAL[place] Mccain (primary) RD hypertension R51 Headache H53.9 Unspecified visual disturbance R39.198 Other difficulties with micturition Z71.6 Tobacco abuse counseling Office Visit 04/16/2018 Family Benjamin, I10 Essential 9:30a Medicine Asim Mccain, AMMONIA DISTILLER (primary) RD hypertension F17.210 Nicotine dependence, cigarettes, uncomplicated Z71.6 Tobacco abuse counseling G47.9 Sleep disorder, unspecified Office Visit 02/28/2018 Family Benjamin G47.9 Sleep disorder, 11:30a Medicine Asim Mccain, AMMONIA DISTILLER unspecified RD M54.5 Low back pain R10.9 Unspecified abdominal pain Office Visit 10/27/2017 Oncology Boufal, D47.1 Chronic 9:00a Office Luisana, DO myeloproliferative disease Office Visit 10/12/2017 Family Benjamin, I10 Essential (primary) 9:30a Medicine Asim Mccain, hypertension RD AMMONIA DISTILLER Office Visit 09/22/2017 Oncology Boufal, D47.1 Chronic [...] 12:00p Oncology Office Boufal, D72.829 Elevated white Lusiana, DO blood cell count, unspecified B18.8 Other chronic viral hepatitis D47.3 Essential (hemorrhagic) thrombocythemia D72.829 Elevated white blood cell count, unspecified D47.3 Essential (hemorrhagic) thrombocythemia B18.8 Other chronic viral hepatitis Office Visit 06/20/2017 Family Gonzalez, J18.0 Bronchopneumonia, 3:15p Medicine KELLY Francois unspecified organism RD Office Visit 04/24/2017 Family Benjamin 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, subcu RD , AMMONIA DISTILLER of trunk H02.9 Unspecified disorder of eyelid Office Visit 03/28/2017 Family Benjamin G47.9 Sleep disorder, 9:30a Medicine Asim Mccain AMMONIA DISTILLER unspecified RD M54.5 Low back pain Z72.0 Tobacco use Z71.6 Tobacco abuse counseling R63.4 Abnormal weight loss Office Visit 01/23/2017 10:45a [facility] Kalyn Baird, M54.[address] AMMONIA DISTILLER pain G47.9 Sleep disorder, unspecified R63.4 Abnormal weight loss Z23 Encounter for immunization Office Visit 01/10/2017 9:45a [facility] Cassidy, G89.[address] GERALD Mccain pain G47.9 Sleep disorder, unspecified Office Visit 12/29/2016 Family Cass[place], F17.210 Nicotine 9:00a [facility] [place] GERALD Mccain dependence, RD cigarettes, uncomplicated G89.29 Other chronic pain G47.9 Sleep disorder, unspecified R63.4 Abnormal weight loss Office Visit 08/16/2015 1:41p Francie Patel, K29.60 Other [facility] bleeding M54.5 Low back pain Plan of Treatment Future Appointment(s):11/28/2018 9:00 am - Kalyn Benjamin FNP at [facility] RD
[2018-10-10] MEDS: Pantoprazole IV* 40 MG IV SCH (18:02)
[2018-10-10 18:28] LABS: Hematocrit 25 % (42-52); Mean Corpuscular HGB Conc 32 g/dl (31-36); Mean Corpuscular Hemoglobin 28 pg (27-31); Mean Corpuscular Volume 89 fL (80-94); Mean Platelet Volume 8.7 fL (7.4-10.4); Platelet Count 1250 10^3/ul (150-450); Red Blood Count 2.83 10^6/ul (4.00-5.40); Red Cell Distribution Width 18 % (10.5-15); White Blood Count 18.7 10^3/ul (3.5-10.8)
[2018-10-10 18:30] LABS: Lymphocytes % 20 %; Monocytes % 12 %; Neutrophil % 66 %; Nucleated Red Blood Cells/100 1 (0-0)
[2018-10-10 18:33] LABS: Polychromasia 1+
[2018-10-10 18:45] LABS: Burr Cells 1+
[2018-10-10 18:47] LABS: ABS Basophils 0.2 10^3/ul (0-0.2); ABS Eosinophils 0.4 10^3/ul (0-0.6); ABS Lymphocytes 3.9 10^3/ul (1.0-4.8); ABS Monocytes 2.2 10^3/ul (0-0.8); ABS Neutrophils 12.1 10^3/ul (1.5-7.7); ABS Nucleated RBC 0.1 10^3/ul; Nucleated Red Blood Cells % 0.4
[2018-10-11 05:55] LABS: INR 1.04 (0.77-1.02)
[2018-10-11 05:56] LABS: Hematocrit 25 % (42-52); Hemoglobin 7.9 g/dl (14.0-18.0); Mean Corpuscular HGB Conc 32 g/dl (31-36); Mean Corpuscular Hemoglobin 28 pg (27-31); Mean Corpuscular Volume 89 fL (80-94); Red Cell Distribution Width 18 % (10.5-15); White Blood Count 14.6 10^3/ul (3.5-10.8)
[2018-10-11 06:07] LABS: Albumin 3.6 g/dL (3.2-5.2); Albumin/Globulin Ratio 1.4 (1-3); Calcium 8.7 mg/dL (8.6-10.3); EGFR African American 102.3 (>60); EGFR Non-African American 84.5 (>60); Globulin 2.6 g/dL (2-4); Potassium 4.1 mmol/L (3.5-5.0); Total Bilirubin 0.4 mg/dL (0.2-1.0); Total Protein 6.2 g/dL (6.4-8.9)
[2018-10-11 06:14] LABS: ABS Basophils 0.2 10^3/ul (0-0.2); ABS Eosinophils 0.4 10^3/ul (0-0.6); ABS Lymphocytes 2.5 10^3/ul (1.0-4.8); ABS Monocytes 1.8 10^3/ul (0-0.8); ABS Neutrophils 9.8 10^3/ul (1.5-7.7); ABS Nucleated RBC 0.1 10^3/ul; Eosinophil % 2.7 %; Lymphocyte % 16.8 %; Mean Platelet Volume 9.1 fL (7.4-10.4); Nucleated Red Blood Cells % 0.4; Platelet Count 1174 10^3/ul (150-450)
--- NOTE | 2018-10-11 06:33 | PN ---
Progress Note - Progress Note Date of Service: 10/11/18 Note: Asked to see patient - c/o of sudden onset right foot pain shortly after getting labs drawn from right arm. RN states he was writhing in pain and unable to obtain and pulse by doppler and foot white and cold. On my arrival, pain resolved, feeling has improved. Extremity slightly cooler than left, both are pale. Able to obtain a dorsalis pedis pulse via doppler.
[2018-10-11] MEDS ORDERED: Morphine VIAL* 10 MG/ML 1 ML VIAL IV STA (08:51)
[2018-10-11] MEDS ORDERED: HydroxyUREA CAP* 500 MG CAP PO SCH (09:00)
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
--- NOTE | 2018-10-11 09:07 | PN ---
Progress Note - Progress Note Date of Service: 10/11/18 SOAP: Subjective: acute right foot pain. happened this am at 6 am, associated with a cold foot and acute pain. it was self limited. It recurred about 30 minutes ago. pain feels like burning in top of foot to calf. no BM x ~36 hours. Objective: Vital Signs Temp Pulse Resp BP Pulse Ox 98.7 F 81 18 140/73 98 10/11/18 04:18 10/11/18 04:18 10/11/18 09:14 10/11/18 04:18 10/11/18 04:18 uncomfortable in appearance in nad perr eomi op moist cta bl s1 s2 nl soft nt +bs no le edema r big toe cold, no clear dopplerable pulse at ankle of top of foot Laboratory Results - last 24 hr 10/10/18 10/11/18 10/11/18 17:40 05:33 05:33 WBC 18.7 H 14.6 H RBC 2.83 L 2.80 L Hgb 8.0 L 7.9 L Hct 25 L 25 L MCV 89 89 MCH 28 28 MCHC 32 32 RDW 18 H 18 H Plt Count 1250 H D 1174 H D MPV 8.7 9.1 Neut % (Auto) 67.1 Lymph % (Auto) 16.8 Emmet % (Auto) 12.3 Eos % (Auto) 2.7 Baso % (Auto) 1.1 Absolute Neuts (auto) 12.1 H 9.8 H Absolute Lymphs (auto) 3.9 2.5 Absolute Monos (auto) 2.2 H 1.8 H Absolute Eos (auto) 0.4 0.4 Absolute Basos (auto) 0.2 0.2 Absolute Nucleated RBC 0.1 0.1 Neutrophils % 66 Lymphocytes % 20 Monocytes % 12 Eosinophils % 2 Nucleated RBC % 0.4 0.4 Nucleated RBCs/100 WBC 1 H Platelet Morphology Giant Normal RBC Morphology Not Reportable Polychromasia 1+ Hypochromasia 1+ Anisocytosis 2+ Callejas-[place] Bodies Present Graettinger Cells 1+ Elliptocytes 1+ INR (Anticoag Therapy) 1.04 H Sodium Potassium Chloride Carbon Dioxide Anion Gap BUN Creatinine Est GFR ( Amer) Est GFR (Non-Af Amer) BUN/Creatinine Ratio Glucose Calcium Total Bilirubin AST ALT Alkaline Phosphatase Total Protein Albumin Globulin Albumin/Globulin Ratio 03/07/19 05:33 WBC RBC Hgb Hct MCV MCH MCHC RDW Plt Count MPV Neut % (Auto) Lymph % (Auto) Emmet % (Auto) Eos % (Auto) Baso % (Auto) Absolute Neuts (auto) Absolute Lymphs (auto) Absolute Monos (auto) Absolute Eos (auto) Absolute Basos (auto) Absolute Nucleated RBC Neutrophils % Lymphocytes % Monocytes % Eosinophils % Nucleated RBC % Nucleated RBCs/100 WBC Platelet Morphology Normal RBC Morphology Polychromasia Hypochromasia Anisocytosis [place] Bodies Rosalie Cells Elliptocytes INR (Anticoag Therapy) Sodium 137 Potassium 4.1 Chloride 106 Carbon Dioxide 27 Anion Gap 4 BUN 8 Creatinine 0.89 Est GFR ( Amer) 102.3 Est GFR (Non-Af Amer) 84.5 BUN/Creatinine Ratio 9.0 Glucose 93 Calcium 8.7 Total Bilirubin 0.40 AST 15 ALT 7 Alkaline Phosphatase 81 Total Protein 6.2 L Albumin 3.6 Globulin 2.6 Albumin/Globulin Ratio 1.4 Assessment: Very complicated 68 yo M w h/o prostate CA sp RT and per report resultant proctitis, elevated platelet count and a reported history of ET (though nondiagnostic bone marrow and negative cytogenetics by report) p/w symptomatic anemia and tarry stools, course now complicated by concern for acute arterial thrombosis of his RLE. Clearly this is a very complicated case. Urgently, we will need to evaluate his vasculature and his upper GI tract. I have spoken with Dr. Smith, Dr. Bañuelos and Dr. Serrato. He will have a stat CTA with run off, be transferred to endoscopy for an upper GI and then to the ICU for management. He will likely need a heparin drip and potentially transfer to a higher level of care. I did order hydrea to try to get his platelet count down quickly, with the knowledge that this will drop his hemoglobin and he will need transfusion support from this as well. I do think we need to get him down quickly though. Part of his thrombocytosis is certainly reactive from anemia and marginalization from postsplenectomy state. Pending from yesterday there is a bone marrow biopsy and acquired von willebrand panel, as well as molecular studies.
[2018-10-11] MEDS ORDERED: Morphine VIAL* 4 MG/ML VIAL (1 ml vial) IV STA (09:08)
[2018-10-11] MEDS: Pantoprazole IV* 40 MG IV SCH (09:14)
[2018-10-11] MEDS ORDERED: fentaNYL* 50 MCG/ML 2 ML VIAL (100 MCG VIAL) ONE ×2 (09:47→13:41)
[2018-10-11] MEDS ORDERED: Midazolam* 1 MG/ML 10 ML VIAL (10 MG) ONE ×2 (09:48→13:41)
[2018-10-11] MEDS ORDERED: Iohexol 350* (CONTRAST) 500 ML MDV IV ONE (09:48)
--- NOTE | 2018-10-11 10:34 | PN ---
Progress Note - Progress Note Date of Service: 10/11/18 Note: Gi Brief EGD note see dictation Indication: reported melena, need for urgent heparinization EGD: No varices. No ulcers. No fresh or old blood. Reportedly had colonoscopy Dr. Boyce 1-2 years ago, had radiation changes. May well be source, but hasn't had melena since admit. Given urgent need, and concern for limb ischemia, benefits of heparinization likely outweigh risks. Discussed with Dr. Arnold. James Bañuelos DO 10/11/18 [id number]
--- NOTE | 2018-10-11 11:34 | PRO ---
CC: Dr. Susan Arnold, Camila Benjamin NP* ESOPHAGOGASTRODUODENOSCOPY REPORT: DATE OF PROCEDURE: 10/11/18 PRIMARY CARE PHYSICIAN: Camila Benjamin NP. INDICATION FOR PROCEDURE: Melena, need for urgent anticoagulation. PROCEDURE PERFORMED: Complete esophagogastroduodenoscopy. MEDICATIONS GIVEN: Include: 1. Midazolam 12 mg IV. 2. Fentanyl 50 mcg IV. DESCRIPTION OF PROCEDURE: After the EGD procedure including the risks, benefits , and alternatives with the risks not limited to perforation, surgery, missed lesions and/or were explained to the patient, written informed consent was obtained. IV medication was given and a bite-block was placed between the teeth. The adult Olympus gastroscope was then inserted into the patient's oropharynx into the tubular esophagus. There were no varices in the esophagus. The esophagus appeared grossly normal. The scope was advanced through the lower esophageal sphincter into the stomach. On both anterograde and retroflex views, the appearance was grossly normal. There were no vascular lesions. There were no gastric varices, no ulcer. The scope was advanced through the widely patent pylorus into the duodenal bulb, C- loop and then pushed into the distal duodenum. The mucosa appeared normal. There was no evidence of fresh or old blood. The scope was then removed from the patient. He tolerated the procedure well. He returned to the recovery room in stable condition. IMPRESSION: 1. Complete upper endoscopy to the distal duodenum. 2. No fresh or old blood. 3. No upper gastrointestinal source of anemia identified. RECOMMENDATIONS: Given urgent need for heparinization, I think from a GI point of view, reasonable risk to proceed. Unclear if he has anything active on the lower GI system at this point. Would observe for rich bleeding. He states that he has had a bowel movement about 2 days at this point, but no further black in the stool since arriving in the hospital. He had a previous colonoscopy about 1 to 2 years ago, which per him showed evidence of radiation proctitis. Certainly, this is at risk for bleeding, but given the concern for limb ischemia, the risks and benefits need to be weighed for heparinization. Case was discussed with Dr. Susan Arnold. [id number]/[facility] #: [id number] JOSH
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
--- NOTE | 2018-10-11 14:30 | PN ---
Progress Note - Progress Note Date of Service: 10/11/18 Note: Gi Flex Sig indication: CT with ?bleed distal sigmoid Findings: Flex sig to mid TV Brown stool. Scant ooze in rectum, no brisk active bleed Endoclip placed over oozing area with good effect. Diverticulosis Rec: No lesion to match CT. From GI POV acceptable risk to heparinize. Monitor closely for bleeding James Bañuelos DO 10/11/18 1125
[2018-10-11] MEDS: HydroxyUREA CAP* 500 MG CAP PO SCH ×2 (16:19→23:32)
[2018-10-11] MEDS ORDERED: Heparin DRIP 25,000 UNITS(*) 25,000 UNITS/500 ML BAG ONE (17:16)
--- NOTE | 2018-10-11 17:25 | PN ---
Progress Note - Progress Note Date of Service: 10/11/18 SOAP: Events of the day reviewed. I have spoken multiple times with Dr. Serrato, Dr. Bañuelos, and Dr. Smith. Upper and lower endoscopy without active bleeding sites to account for low Hb. ?slow bleed from radiation proctitis plus marrow failure, though iron studies with clear iron deficiency. CTA with clear thrombus in the thoracic aorta and right common femoral artery extending to the right saphenous artery, likely the etiology of his claudication symptoms ( showering emboli). No clear contraindication to anticoagulation. Plan to start IV heparin drip and if clot does not absorb over night (still evidence of obstruction on US in am) Dr. Smith feels he should be transferred to a higher level of care. Mr. Adams is not enthusiastic about these options but did agree to stay over night.
[2018-10-11] MEDS ORDERED: Heparin DRIP 25,000 UNITS(*) 25,000 UNITS/500 ML BAG IV SCH ×2 (17:30→19:44)
[2018-10-11] MEDS ORDERED: Heparin VIAL(*) 5000 UNITS/ML VIAL (FIVE THOUSAND) IV SCH (18:00)
[2018-10-11 18:29] LABS: Hematocrit 24 % (42-52); Hemoglobin 7.8 g/dl (14.0-18.0); Mean Corpuscular HGB Conc 32 g/dl (31-36); Mean Corpuscular Hemoglobin 29 pg (27-31); Mean Corpuscular Volume 89 fL (80-94); Red Blood Count 2.71 10^6/ul (4.00-5.40); Red Cell Distribution Width 17 % (10.5-15)
[2018-10-11 18:39] LABS: EGFR African American 100.9 (>60); EGFR Non-African American 83.4 (>60)
[2018-10-11 18:53] LABS: ABS Basophils 0.3 10^3/ul (0-0.2); ABS Eosinophils 0.2 10^3/ul (0-0.6); ABS Lymphocytes 3.3 10^3/ul (1.0-4.8); ABS Neutrophils 13.2 10^3/ul (1.5-7.7); ABS Nucleated RBC 0.1 10^3/ul; Large Platelets Present; Lymphocyte % 17.2 %; Mean Platelet Volume 8.8 fL (7.4-10.4); Nucleated Red Blood Cells % 0.3; Platelet Count 1257 10^3/ul (150-450); Polychromasia 2+
--- NOTE | 2018-10-11 20:41 | PRO ---
CC: Dr. Susan Arnold; Camila Benjamin NP* FLEXIBLE SIGMOIDOSCOPY REPORT: DATE OF PROCEDURE: 10/11/18 INDICATION FOR PROCEDURE: Abnormal CT angiography, concern for sigmoid colon bleed. PROCEDURE PERFORMED: Flexible sigmoidoscopy to distal transverse colon. MEDICATIONS GIVEN: Include: 1. 3 mg midazolam. 2. 25 mcg IV fentanyl. DESCRIPTION OF PROCEDURE: After the flexible sigmoidoscopy procedure including the risks, benefits, and alternatives with the risks not limited to perforation , surgery, missed lesions, and/or were explained to the patient, written informed consent was obtained. IV medication was given. A rectal exam was performed. The rectal exam was unremarkable without evidence of active bleeding. The scope was then introduced into the rectum and advanced very carefully to the distal transverse colon. No rich bleeding was noted throughout the sigmoid and transverse colon. There were visualized stools and retained stool limiting views. The stool was brown in color without evidence that there was ongoing GI bleed. There was moderate left-sided diverticulosis coli and further withdrawal to the rectum, the direct views revealed a small oozing vessel about 3 to 4 cm and from the verge. This looked that it may have been enema trauma; however, given the need for emergent heparinization, I did place an Endo Clip over this area. No further bleeding was noted. Again, no overt signs of blood loss were noted on the exam. The scope was then removed from the patient. He tolerated the procedure well. He returned to the ICU in stable condition. IMPRESSION: 1. Complete flexible sigmoidoscopy to the distal transverse colon. 2. No lesions were identified; the abnormality visualized on the CTA. 3. No gross active risk of gastrointestinal bleed. 4. Scant oozing in the rectum, status post Endo Clip placement. RECOMMENDATIONS : At this point, I think the benefits far outweigh the risks of heparinization. We will go ahead and heparinize the patient for his thrombus. Would monitor closely for signs of GI bleeding and we will address if they become overt. [id number]/[facility] #: [id number] JOSH
[2018-10-12 04:30] LABS: Hematocrit 23 % (42-52); Hemoglobin 7.4 g/dl (14.0-18.0); Mean Corpuscular HGB Conc 32 g/dl (31-36); Mean Corpuscular Hemoglobin 29 pg (27-31); Mean Corpuscular Volume 89 fL (80-94); Mean Platelet Volume 9.1 fL (7.4-10.4); Platelet Count 1273 10^3/ul (150-450); Red Blood Count 2.59 10^6/ul (4.00-5.40); Red Cell Distribution Width 18 % (10.5-15); White Blood Count 15.7 10^3/ul (3.5-10.8)
[2018-10-12 04:41] LABS: Albumin 3.4 g/dL (3.2-5.2); Albumin/Globulin Ratio 1.3 (1-3); BUN/Creatinine Ratio 9.4 (8-20); Calcium 8.3 mg/dL (8.6-10.3); EGFR African American 107.8 (>60); EGFR Non-African American 89.1 (>60); Globulin 2.6 g/dL (2-4); Potassium 3.7 mmol/L (3.5-5.0); Total Bilirubin 0.4 mg/dL (0.2-1.0)
[2018-10-12 04:53] LABS: Lymphocytes % 24 %; Monocytes % 3 %; Neutrophil % 69 %; Polychromasia 1+; Variant Lymph % 2 % (0-6)
[2018-10-12 04:55] LABS: ABS Eosinophils 0.31 10^3/ul (0-0.6); ABS Neutrophils 10.83 10^3/ul (1.5-7.7)
[2018-10-12] MEDS: Pantoprazole IV* 40 MG IV SCH (07:35)
[2018-10-12] MEDS: HydroxyUREA CAP* 500 MG CAP PO SCH (07:36)
--- NOTE | 2018-10-12 09:33 | PN ---
Progress Note - Progress Note Date of Service: 10/12/18 Note: I have reviewed this morning's right leg arterial duplex in person with Dr. Panda. The soft, partially mobile thrombus in the right BEVERAGE HOST/SFA appears unchanged from yesterday's CTA. The patient will benefit from embolectomy and angiography which I will be unavailable to manage post procedurally in the following days. This was discussed with Dr. Panda in person and communicated to Dr. Arnold via text message.
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
[2018-10-12] MEDS ORDERED: traMADol TAB* 50 MG PO PRN (10:33)
[2018-10-12 13:57] VITALS: BP 149/101
== END 2018-10-12 14:00 | disposition short-term general hospital (02) | DRG 300 ==
LOC: MEDTELE 17:08 → OBSVTOIN 17:12 → ICU 10-11 10:58
PROVIDERS: ADMIT Internal Medicine Hematology & Oncology; ATTEND Internal Medicine Hematology & Oncology
PROC: 0DJ08ZZ Inspection of Upper Intestinal Tract, Via Natural or Artificial Opening Endoscopic (ICD-10-PCS; principal; 2018-10-11)
PROC: 0W3P8ZZ Control Bleeding in Gastrointestinal Tract, Via Natural or Artificial Opening Endoscopic (ICD-10-PCS; 2018-10-11)
DX: I74.11 Embolism and thrombosis of thoracic aorta (principal); I74.3 Embolism and thrombosis of arteries of the lower extremities; K92.1 Melena; D64.9 Anemia, unspecified; D72.829 Elevated white blood cell count, unspecified; K57.30 Diverticulosis of large intestine without perforation or abscess without bleeding; D47.3 Essential (hemorrhagic) thrombocythemia; E78.5 Hyperlipidemia, unspecified; I10 Essential (primary) hypertension; F17.210 Nicotine dependence, cigarettes, uncomplicated; F10.10 Alcohol abuse, uncomplicated; Z85.46 Personal history of malignant neoplasm of prostate; Z92.3 Personal history of irradiation; Z90.81 Acquired absence of spleen; Z79.82 Long term (current) use of aspirin; Z79.891 Long term (current) use of opiate analgesic; Z79.899 Other long term (current) drug therapy; Z80.42 Family history of malignant neoplasm of prostate; Z88.6 Allergy status to analgesic agent
CPT/HCPCS: 36415; 70450; 75635; 80053; 82565; 84520; 85025; 85060; 85610; 85730; 99156; 99157; 99222; A9270-GY; J1644; J2250; J2270; J3010; Q9967

== ENCOUNTER 2019-02-25 09:17 | Inpatient (IN) | payer MEDICARE, MEDICAID ==
--- OUTSIDE RECORDS SUMMARY | 2019-02-25 10:46 | XMS REPORT | Continuity of Care Document ---
:1950 External Reference #:[id number] Author Name Kalyn Benjamin FNP Address [address] [place] [address] [place] [address] Care Team Providers Name Role Phone Kalyn Benjamin NP Care Team Information [employer]er Unavailable Kalyn Benjamin NP Primary Care Physician Unavailable Payers Date Identification Numbers Payment Provider Subscriber Policy Number: [id number] Medicare Gerardo Adams PayID: [id number] [address] [place] [address] Policy Number: [id number] Medicaid Gerardo Adams PayID: [id number] [address] [place] [address] Problems Active Problems Provider Date Essential thrombocythemia Kalyn Benjamin CAGE SHIFT MANAGER Onset: 07/25/2017 Combined form of senile cataract Kalyn Benjamin FNP Onset: 07/25/2017 Tear film insufficiency Kalyn Benjamin [employer]AGE SHIFT MANAGER Onset: 07/25/2017 Tobacco user Kalyn Benjamin [employer]AGE SHIFT MANAGER Onset: 07/25/2017 Chronic pain Kalyn Benjamin FNP Onset: 07/25/2017 Note: no longer followed by Dr. 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 Luisana De Leon DO Onset: 07/25/2017 Chronic myeloproliferative disease Luisana De Leon DO Onset: 08/28/2017 Difficulty passing urine Kalyn Benjamin FNP Onset: 07/16/2018 Anemia Jose Xiong MD,FACS Onset: 10/05/2018 Other insomnia Kalyn Benjamin FNP Onset: 02/05/2019 Essential hypertension Kalyn Benjamin FNP Onset: 02/05/2019 Family History Date Family Member(s) Observation Comments Father due to Pancreatic Cancer () Mother Unknown In halfway Maternal Grandfather due to Unknown Causes () Maternal Grandmother due to Unknown Causes () Social History Type Date Description Comments Sex Unknown Marital Status Single Lives With Alone Diet Patient follows no dietary restrictions 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 Tobacco Use Start: Unknown End: Former Cigarette Smoker on nicotine patch Unknown since beginning of December 2016 ETOH Use Occasionally consumes alcohol Recreational Drug Use Marijuana Tobacco Use Start: Unknown Light tobacco smoker (10 or fewer cigarettes/day) Smoking Status Reviewed: 01/31/19 Light tobacco smoker (10 or fewer cigarettes/day) Allergies, Adverse Reactions, Alerts Active Allergies Reaction Severity Comments Date Tylenol nose runs, congestion 12/29/2016 Medications Active Medications SIG Qnty Indications Ordering Date Provider Ambien 1 tab at bedtime 10tabs [place], 01/25/2019 10mg Tablets as needed MDD #1 Kalyn, Reference #: CAGE SHIFT MANAGER [id number] Nicotine Apply 1 Patch On 21units F17.210 [place], 11/28/2018 21mg/24HR Hairless Skin Of Kalyn, Patches 24HR Arms, Chest Or CAGE SHIFT MANAGER Back And Change Once A Day Z71.6 Dulcolax 1-2 capsules once a 4tabs Jose Xiong, 10/05/[address] day *using OTC ,DONTA Aspirin 1 by mouth every day 90tabs R51 Cassidy, 07/16/2018 81mg Tablets GERALD Hummel Hydroxyurea one tablet 2 x a Unknown 500mg Capsules week (Mon/) Oxycodone HCL Take One Tablet By Unknown 5mg Tablets Mouth Every 6 Hours For 30 Days as Needed Maximum Daily Dose 4 Eliquis Take One Tablet By Unknown 5mg Tablets Mouth Twice A Day x 6 months then decrease to 2.5 mg bid Omeprazole Take One Capsule By 30caps Cassidy, 40mg Capsules DR Mouth Every Day GERALD Mccain Lisinopril Take One Tablet By 90tabs [place], 40mg Tablets Mouth Every Day [facility] Pravastatin Sodium Take One Tablet By 90tabs [place], 40mg Mouth Every Day [facility] Tablets History Medications Tamsulosin HCL Take One Capsule 90caps R39.198 [place], 01/12/2019 - By Mouth Every [facility] 02/05/2019 0.4mg Capsules Day Metoprolol Take 1 Tab by 60tabs Unknown 10/17/2018 - Tartrate mouth Twice 02/05/2019 25mg Daily. Tablets Oxaydo Take 1 Tab by 5tabs Unknown 10/17/2018 - 5mg mouth Every Six 02/05/2019 Taba Hours as Needed (pain). Max Daily Amount: 20 mg. Enoxaparin Inject 0.7 mL 4200units Unknown 10/16/2018 - Sodium beneath the skin 02/05/2019 Every Twelve 40mg/0.4ML Hours. Solution Miralax one tablespoon 510gm K59.00 Al[place], 10/05/2018 - in [address] [facility] 02/05/2019 3350NF Powder water once a day Nicotine one a day on dry 28units F17.210 [place], 07/16/2018 - hairless skin of [facility] 11/28/2018 14mg/24HR arms, chest or Patches 24HR back x 2 month then decrease to 7 mcg daily Z71.6 Flomax one PO qd 90caps R39.198 [place], 07/16/2018 - 0.4mg [facility] 01/12/2019 Capsules Norvasc one PO qd 90tabs I10 [place], 07/16/2018 - 5mg Tablets [facility] 02/05/2019 Nicotine one a day on dry 42units F17.210 [place], 04/16/2018 - 21mg/24HR hairless skin of [facility] 07/16/2018 Patches 24HR arms, chest or back x 2 month then decrease to 14 mcg daily Amitriptyline HCL 1 by mouth every 60tabs G47.9 [place], 02/28/2018 - night at bedtime [facility] 08/06/2018 25mg Tablets if no improvement in 2-3 days, then increase to 2 at night. Nicotine one a day on dry 28units Al[place], 12/14/2017 - 21mg/24HR hairless skin of Kalyn [facility] 02/28/2018 Patches 24HR arms, chest or back Ergocalciferol 1 cap po q week 6caps Luisana De Leon, 10/29/2017 - DO 02/28/2018 [id number] Capsules Folic Acid 1 tabl by mouth 90tabs Luisana De Leon, 09/22/2017 - 1mg every day DO 10/12/2017 Tablets Hydrea 1 tabl po qod/qd 30caps Luisana De Leon, 08/28/2017 - 500mg depending on DO 10/27/2017 Capsules blood work Azithromycin 2 tab by mouth 6tabs J18.0 Karley Faye M.D. 06/20/2017 - 250mg day 1 1 tab by 06/25/2017 Tablets mouth day 2-5 Ventolin HFA 2 puffs every 4 18gm J18.0 Karley Faye M.D. 06/20/2017 - hours as needed 07/04/2017 108(90Base) mcg/Act for cough and Aerosol wheeze Nicotine one patch placed 21units Z72.0 [place], 03/28/2017 - 7mg/24HR on dry skin [facility] 05/31/2017 Patches 24HR day Celebrex 1 by mouth twice 60caps G89.29 [place], 01/10/2017 - 100mg a [facility] 03/28/2017 Capsules Trazodone HCL 1 by mouth at 90tabs G47.9 [place], 01/10/2017 - 100mg bedtime [facility] Unknown Tablets Seroquel 2-3 tablets an 90tabs G47.9 [place], 12/29/2016 - 50mg hour prior to [facility] 01/10/2017 Tablets bedtime *in place of Trazodone Trazodone HCL 1 by mouth at G47.9 Unknown - 100mg bedtime 12/29/2016 Tablets Diazepam 1 by mouth at 30tabs Clune, - 5mg night [facility] 08/09/2017 Tablets Oxycodone HCL ER 1 tablet by Unknown - mouth every 6 01/10/2017 hours Tizanidine HCL Take 1 2 1 Unknown - 4mg Tablet By Mouth 06/20/2017 Tablets Every Evening as Directed Methadone HCL Take One Tablet Unknown - 5mg By Mouth Every 8 02/28/2018 Tablets Hours as Directed Maximum Daily Dose Ambien take one tab by Unknown - 5mg Tablets mouth at night Unknown as needed as needed insomnia Tizanidine HCL Take 1 2 1 Unknown - 4mg Tablet By Mouth 08/09/2017 Tablets Every Evening as Directed Ambien 1 tab by mouth Unknown - 5mg Tablets every night at 02/28/2018 bedtime as needed insomnia reference #: [id number] Tizanidine HCL Take One Tablet 30tabs R51 Clune, - 4mg By Mouth AT [facility] 02/05/2019 Tablets Bedtime For Sleep as Needed Immunizations CPT Code Status Date Vaccine Lot # [id number] Given 07/13/2018 Influenza High Dose 16857 Given 01/23/2017 Pneumococcal Conjugate Vaccine 13 Valent For [id number] Intramuscular Use Vital Signs Date Vital Result Comment 02/05/2019 9:05am BP Systolic 130 mmHg BP Diastolic 70 mmHg BP Systolic Sitting Right Arm 128 mmHg BP Diastolic Sitting Right Arm 76 mmHg BP Systolic Lying Down Resting Right Arm 126 mmHg BP Diastolic Lying Down Resting Right Arm 78 mmHg BP Systolic Standing Resting Right Arm 118 mmHg BP Diastolic Standing Resting Right Arm 70 mmHg Heart Rate 89 /min Height 70 inches 5'10" Weight 143.50 lb BMI (Body Mass Index) 20.6 kg/m2 BSA (Body Surface Area) 1.81 m2 Kingsley body weight in kilograms 75 kg O2 % BldC Oximetry 90 % 11/28/2018 8:54am BP Systolic 148 mmHg BP Diastolic 72 mmHg Heart Rate 65 /min Respiratory Rate 17 /min Height 70 inches 5'10" Weight 150.38 lb BMI (Body Mass Index) 21.6 kg/m2 BSA (Body Surface Area) 1.85 m2 Kingsley body weight in kilograms 75 kg 10/05/2018 11:49am BP Systolic 111 mmHg BP Diastolic 72 mmHg Heart Rate 90 /min Respiratory Rate 18 /min Height 70 inches 5'10" Weight 149.00 lb BMI (Body Mass Index) 21.4 kg/m2 BSA (Body Surface Area) 1.84 m2 Kingsley body weight in kilograms 75 kg 10/02/2018 3:08pm BP Systolic 134 mmHg BP Diastolic 76 mmHg Body Temperature 97.5 F Heart Rate 82 /min Respiratory Rate 18 /min Height 70 inches 5'10" Weight 153.00 lb BMI (Body Mass Index) 22.0 kg/m2 BSA (Body Surface Area) 1.86 m2 Kingsley body weight in kilograms 75 kg O2 % BldC Oximetry 94 % 07/16/2018 9:57am BP Systolic Sitting Left Arm 138 mmHg BP Diastolic Sitting Left Arm 82 mmHg Heart Rate 88 /min Respiratory Rate 18 /min ` Height 70 inches 5'10" Weight 153.12 lb BMI (Body Mass Index) 22.0 kg/m2 BSA (Body Surface Area) 1.86 m2 Kingsley body weight in kilograms 75 kg 04/16/2018 9:45am BP Systolic Sitting Left Arm 134 mmHg BP Diastolic Sitting Left Arm 86 mmHg Heart Rate 88 /min Respiratory Rate 18 /min Height 70 inches 5'10" Weight 142.00 lb BMI (Body Mass Index) 20.4 kg/m2 BSA (Body Surface Area) 1.80 m2 Kingsley body weight in kilograms 75 kg 02/28/2018 11:26am BP Systolic Sitting Left Arm 140 mmHg BP Diastolic Sitting Left Arm 80 mmHg Heart Rate 80 /min Respiratory Rate 18 /min Height 70 inches 5'10" Weight 142.38 lb BMI (Body Mass Index) 20.4 kg/m2 BSA (Body Surface Area) 1.81 m2 Kingsley body weight in kilograms 75 kg 10/27/2017 [...] kg/m2 BSA (Body Surface Area) 1.80 m2 Kingsley body weight in kilograms 75 kg 09/22/2017 [...] kg/m2 BSA (Body Surface Area) 1.79 m2 Kingsley body weight in kilograms 75 kg O2 % BldC Oximetry 96 % 06/20/2017 3:30pm BP Systolic Sitting Right Arm 140 mmHg BP Diastolic Sitting Right Arm 72 mmHg Body Temperature 97.8 F Heart Rate 97 /min Height 70 inches 5'10" Weight 138.25 lb BMI (Body Mass Index) 19.8 kg/m2 BSA (Body Surface Area) 1.78 m2 Kingsley body weight in kilograms 75 kg O2 % BldC Oximetry 97 % 04/24/2017 9:45am BP Systolic 144 mmHg BP Diastolic 86 mmHg Body Temperature 96.0 F Heart Rate 65 /min Height 70 inches 5'10" Weight 138.00 lb BMI (Body Mass Index) 19.8 kg/m2 BSA (Body Surface Area) 1.78 m2 Kingsley body weight in kilograms 75 kg O2 % BldC Oximetry 97 % 03/28/2017 9:43am BP Systolic 134 mmHg BP Diastolic 82 mmHg Heart Rate 61 /min Height 70 inches 5'10" Weight 139.00 lb BMI (Body Mass Index) 19.9 kg/m2 BSA (Body Surface Area) 1.79 m2 Kingsley body weight in kilograms 75 kg 01/23/2017 [...] kg/m2 BSA (Body Surface Area) 1.78 m2 Kingsley body weight in kilograms 75 kg 12/29/2016 8:50am BP Systolic Sitting Left Arm 138 mmHg BP Diastolic Sitting Left Arm 84 mmHg Height 70 inches 5'10" Weight 137.38 lb BMI (Body Mass Index) 19.7 kg/m2 BSA (Body Surface Area) 1.78 m2 Kingsley body weight in kilograms 75 kg Results Test Date Facility Test Result H/L Range Note CBC Auto 02/05/2019 [facility] White Blood 19.5 10^3/ uL High 3.5-10.8 Diff [phone] Count Red Blood Count 2.24 10^6/uL Low 4.18-5.48 Hemoglobin 6.0 g/dL Critical low 14.0-18.0 1 Hematocrit 19 % Low 42-52 Mean Corpuscular Volume 86 fL Normal 80-94 Mean Corpuscular Hemoglobin 27 pg Normal 27-31 Mean Corpuscular HGB Conc 31 g/dL Normal 31-36 Red Cell Distribution Width 21 % High 10-15 Platelet Count 1719 10^3/uL High 150-450 Mean Platelet Volume 9.6 fL Normal 7.4-10.4 Abs Neutrophils 11.4 10^3/uL High 1.5-7.7 Abs Lymphocytes 5.2 10^3/uL High 1.0-4.8 Abs Monocytes 2.4 10^3/uL High 0-0.8 Abs Eosinophils 0.4 10^3/uL Normal 0-0.6 Abs Basophils 0.1 10^3/uL Normal 0-0.2 Abs Nucleated RBC 0.2 10^3/uL Granulocyte % 58.9 % Lymphocyte % 26.8 % Monocyte % 12.1 % Eosinophil % 1.9 % Basophil % 0.3 % Nucleated Red Blood Cells % 1.1 CBC Auto 01/08/2019 [facility] White Blood 13.2 10^3/ uL High 3.5-10.8 Diff [phone] Count Red Blood Count 2.10 10^6/uL Low 4.18-5.48 Hemoglobin 6.1 g/dL Critical low 14.0-18.0 2 Hematocrit 19 % Low 42-52 Mean Corpuscular Volume 91 fL Normal 80-94 Mean Corpuscular Hemoglobin 29 pg Normal 27-31 Mean Corpuscular HGB Conc 32 g/dL Normal 31-36 Red Cell Distribution Width 20 % High 10.5-15 Platelet Count 599 10^3/uL High 150-450 Mean Platelet Volume 8.5 fL Normal 7.4-10.4 Abs Neutrophils 7.9 10^3/uL High 1.5-7.7 Abs Lymphocytes 3.6 10^3/uL Normal 1.0-4.8 Abs Monocytes 1.4 10^3/uL High 0-0.8 Abs Eosinophils 0.2 10^3/uL Normal 0-0.6 Abs Basophils 0.1 10^3/uL Normal 0-0.2 Abs Nucleated RBC 0.0 10^3/uL Granulocyte % 60.1 % Lymphocyte % 27.0 % Monocyte % 11.0 % Eosinophil % 1.4 % Basophil % 0.5 % Nucleated Red Blood Cells % 0.2 Cell Morphology 01/08/2019 [facility] Hypochromasia 1 + [phone] Polychromasia 1+ Anisocytosis 3+ [place] Bodies Present Basic Metabolic 01/08/2019 [facility] Sodium 136 mmol /L Normal 135-145 Panel [phone] Potassium 4.5 mmol/L Normal 3.5-5.0 Chloride 104 mmol/L Normal 101-111 Co2 Carbon Dioxide 27 mmol/L Normal 22-32 Anion Gap 5 mmol/L Normal 2-11 Glucose 117 mg/dL High 70-100 Blood Urea Nitrogen 13 mg/dL Normal 6-24 Creatinine 1.24 mg/dL High 0.67-1.17 BUN/Creatinine Ratio 10.5 Normal 8-20 Calcium 9.3 mg/dL Normal 8.6-10.3 Egfr Non- 57.6 >60 Egfr 69.7 >60 3 Laboratory test 01/08/2019 [facility] PSA Diagnostic 10.846 ng/mL High 0-4.000 4 finding [phone] Type & Screen 01/08/2019 [facility] Patient Blood B Positive [phone] Type Antibody Screen NEGATIVE Laboratory test 01/08/2019 [facility] Packed Cells SEE RESULTS 5 finding [phone] BELO <SEE NOTE> CBC Auto Diff 12/12/2018 [facility] White Blood 16.1 10^3/uL High 3.5-10 [phone] Count .8 Red Blood Count 3.21 10^6/uL Low 4.18-5.48 Hemoglobin 9.4 g/dL Low 14.0-18.0 Hematocrit 29 % Low 42-52 Mean Corpuscular Volume 89 fL Normal 80-94 Mean Corpuscular Hemoglobin 29 pg Normal 27-31 Mean Corpuscular HGB Conc 33 g/dL Normal 31-36 Red Cell Distribution Width 20 % High 10.5-15 Platelet Count 1145 10^3/uL High 150-450 6 Mean Platelet Volume 8.7 fL Normal 7.4-10.4 Abs Neutrophils 7.6 10^3/uL Normal 1.5-7.7 Abs Lymphocytes 5.7 10^3/uL High 1.0-4.8 Abs Monocytes 1.9 10^3/uL High 0-0.8 Abs Eosinophils 0.6 10^3/uL Normal 0-0.6 Abs Basophils 0.2 10^3/uL Normal 0-0.2 Abs Nucleated RBC 0.0 10^3/uL Granulocyte % 47.4 % Lymphocyte % 35.7 % Monocyte % 11.9 % Eosinophil % 3.9 % Basophil % 1.1 % Nucleated Red Blood Cells % 0.2 Basic Metabolic 12/12/2018 [facility] Sodium 137 mmol /L Normal 135-145 Panel [phone] Chloride 103 mmol/L Normal 101-111 Co2 Carbon Dioxide 29 mmol/L Normal 22-32 Glucose 78 mg/dL Normal 70-100 Blood Urea Nitrogen 19 mg/dL Normal 6-24 Creatinine 1.25 mg/dL High 0.67-1.17 BUN/Creatinine Ratio 15.2 Normal 8-20 Calcium 9.6 mg/dL Normal 8.6-10.3 Egfr Non- 57.1 >60 Egfr 69.1 >60 7 Potassium 5.3 mmol/L High 3.5-5.0 Anion Gap 5 mmol/L Normal 2-11 CBC Auto 11/29/2018 [facility] White Blood 12.4 10^3/ uL High 3.5-10.8 Diff [phone] Count Red Blood Count 3.62 10^6/uL Low 4.18-5.48 Hemoglobin 10.1 g/dL Low 14.0-18.0 Hematocrit 32 % Low 36-46 Mean Corpuscular Volume 89 fL Normal 80-94 Mean Corpuscular Hemoglobin 28 pg Normal 27-31 Mean Corpuscular HGB Conc 31 g/dL Normal 31-36 Red Cell Distribution Width 19 % High 10.5-15 Platelet Count 1454 10^3/uL High 150-450 8 Mean Platelet Volume 8.7 fL Normal 7.4-10.4 Manual Differential 11/29/2018 [facility] Immature 1 % Normal 0-9 [phone] Granulocytes Neutrophil % 53 % Band % 1 % Normal 0-8 Lymphocytes % 27 % Monocytes % 15 % Eosinophils % 3 % Basophil % 1 % Nucleated Red Blood Cells/100 1 High 0-0 Anisocytosis 1+ Abs Neutrophils 6.7 10^3/uL Normal 1.5-7.7 Abs Lymphocytes 3.3 10^3/uL Normal 1.0-4.8 Abs Monocytes 1.9 10^3/uL High 0-0.8 Abs Eosinophils 0.4 10^3/uL Normal 0-0.6 Abs Basophils 0.1 10^3/uL Normal 0-0.2 Basic Metabolic 11/29/2018 [facility] Sodium 136 mmol /L Normal 135-145 Panel [phone] Potassium 5.0 mmol/L Normal 3.5-5.0 Chloride 104 mmol/L Normal 101-111 Co2 Carbon Dioxide 27 mmol/L Normal 22-32 Anion Gap 5 mmol/L Normal 2-11 Glucose 82 mg/dL Normal 70-100 Blood Urea Nitrogen 11 mg/dL Normal 6-24 Creatinine 1.05 mg/dL Normal 0.67-1.17 BUN/Creatinine Ratio 10.5 Normal 8-20 Calcium 9.3 mg/dL Normal 8.6-10.3 Egfr Non- 69.8 >60 Egfr 84.5 >60 9 Laboratory test 11/29/2018 [facility] PSA Diagnostic 13.043 High 0-4.000 10 finding [phone] Pathologist Review (SEE NOTE) 11 Laboratory test 11/08/2018 [facility] Pathologist ( SEE NOTE) 12 finding [phone] Review Manual Differential 11/08/2018 [facility] Neutrophil % 64 % [phone] Lymphocytes % 16 % Monocytes % 16 % Eosinophils % 4 % Basophil % 0 % Abs Neutrophils 9.7 10^3/uL High 1.5-7.7 Abs Lymphocytes 2.4 10^3/uL Normal 1.0-4.8 Abs Monocytes 2.4 10^3/uL High 0-0.8 Abs Eosinophils 0.6 10^3/uL Normal 0-0.6 Abs Basophils 0 10^3/uL Normal 0-0.2 Hypochromasia 1+ Anisocytosis 1+ CBC Auto 11/08/2018 [facility] White Blood 15.1 10^3/ uL High 3.5-10.8 Diff [phone] Count Red Blood Count 3.80 10^6/uL Low 4.18-5.48 Hemoglobin 10.8 g/dL Low 14.0-18.0 Hematocrit 34 % Low 36-46 Mean Corpuscular Volume 89 fL Normal 80-94 Mean Corpuscular Hemoglobin 28 pg Normal 27-31 Mean Corpuscular HGB Conc 32 g/dL Normal 31-36 Red Cell Distribution Width 18 % High 10.5-15 Platelet Count 1316 10^3/uL High 150-450 Mean Platelet Volume 8.7 fL Normal 7.4-10.4 Abs Neutrophils 8.1 10^3/uL High 1.5-7.7 Abs Lymphocytes 4.3 10^3/uL Normal 1.0-4.8 Abs Monocytes 1.6 10^3/uL High 0-0.8 Abs Eosinophils 0.7 10^3/uL High 0-0.6 Abs Basophils 0.4 10^3/uL High 0-0.2 Comp Metabolic 11/08/2018 [facility] Sodium 134 mmol/ L Low 135-145 Panel [phone] Potassium 4.8 mmol/L Normal 3.5-5.0 Chloride 101 mmol/L Normal 101-111 Co2 Carbon Dioxide 29 mmol/L Normal 22-32 Anion Gap 4 mmol/L Normal 2-11 Glucose 73 mg/dL Normal 70-100 Blood Urea Nitrogen 13 mg/dL Normal 6-24 Creatinine 1.13 mg/dL Normal 0.67-1.17 BUN/Creatinine Ratio 11.5 Normal 8-20 Calcium 9.8 mg/dL Normal 8.6-10.3 Total Protein 7.3 g/dL Normal 6.4-8.9 Albumin 4.4 g/dL Normal 3.2-5.2 Globulin 2.9 g/dL Normal 2-4 Albumin/Globulin Ratio 1.5 Normal 1-3 Total Bilirubin 0.20 mg/dL Normal 0.2-1.0 Alkaline Phosphatase 101 U/L Normal 34-104 Alt 20 U/L Normal 7-52 Ast 29 U/L Normal 13-39 Egfr Non- 64.2 >60 Egfr 77.6 >60 13 Manual Differential 10/23/2018 [facility] Neutrophil % 73 % [phone] Lymphocytes % 13 % Monocytes % 12 % Eosinophils % 2 % Hypochromasia 1+ Polychromasia 1+ Elliptocyte 1+ Abs Neutrophils 11.5 10^3/uL High 1.5-7.7 Abs Lymphocytes 2.1 10^3/uL Normal 1.0-4.8 Abs Monocytes 1.9 10^3/uL High 0-0.8 Abs Eosinophils 0.3 10^3/uL Normal 0-0.6 Laboratory test 10/23/2018 [facility] Pathologist ( SEE NOTE) 14 finding [phone] Review CBC Auto Diff 10/23/2018 [facility] Abs Neutrophils 9.9 High 1.5-7 [phone] 10^3/uL .7 White Blood Count 15.8 10^3/uL High 3.5-10.8 Red Blood Count 3.94 10^6/uL Low 4.18-5.48 Hemoglobin 11.1 g/dL Low 14.0-18.0 Hematocrit 35 % Low 36-46 Mean Corpuscular Volume 88 fL Normal 80-94 Mean Corpuscular Hemoglobin 28 pg Normal 27-31 Mean Corpuscular HGB Conc 32 g/dL Normal 31-36 Red Cell Distribution Width 18 % High 10.5-15 Platelet Count 1244 10^3/uL High 150-450 Mean Platelet Volume 8.9 fL Normal 7.4-10.4 Abs Lymphocytes 2.9 10^3/uL Normal 1.0-4.8 Abs Monocytes 2.2 10^3/uL High 0-0.8 Abs Eosinophils 0.6 10^3/uL Normal 0-0.6 Abs Basophils 0.2 10^3/uL Normal 0-0.2 Comp Metabolic 10/23/2018 [facility] Sodium 137 mmol/ L Normal 135-145 Panel [phone] Chloride 101 mmol/L Normal 101-111 Co2 Carbon Dioxide 31 mmol/L Normal 22-32 Glucose 92 mg/dL Normal 70-100 Blood Urea Nitrogen 13 mg/dL Normal 6-24 Creatinine 1.02 mg/dL Normal 0.67-1.17 BUN/Creatinine Ratio 12.7 Normal 8-20 Calcium 9.3 mg/dL Normal 8.6-10.3 Total Protein 7.1 g/dL Normal 6.4-8.9 Albumin 4.1 g/dL Normal 3.2-5.2 Globulin 3.0 g/dL Normal 2-4 Albumin/Globulin Ratio 1.4 Normal 1-3 Total Bilirubin 0.40 mg/dL Normal 0.2-1.0 Alkaline Phosphatase 95 U/L Normal 34-104 Alt 11 U/L Normal 7-52 Ast 22 U/L Normal 13-39 Egfr Non- 72.2 >60 Egfr 87.4 >60 15 Potassium 5.1 mmol/L High 3.5-5.0 Anion Gap 5 mmol/L Normal 2-11 Factor 8 10/10/2018 [facility] [place] See Comment 16, 17 Profile [phone] Factor Multimer Coagulation Factor VIII Activi 234 % Abnormal 55 - 200 18 von Willebrand Factor Antigen 203 % Abnormal 55 - 200 19 VonWillibrand Factor Activity 134 % 55 - 200 20 von Willebrand Panel Interp See Comment 21 von Willebrand Panel Reviewed Keon Magana <SEE NOTE> 22 Special Coag Interp Performed 23 Myeloprolif 10/10/2018 [facility] MPNR Result see interpretati 24 Neoplasm With RFX [phone] <SEE NOTE> MPNR Final Diagnosis See Comment 25 Protein 10/10/2018 [facility] Total 6.6 g/dL 6.3 - Electrophoresis [phone] Protein(Pep) 7.9 Albumin 3.2 g/dL Abnormal 3.4-4.7 Alpha-1 Globulin 0.4 g/dL Abnormal 0.1-0.3 Alpha-2 Globulin 1.2 g/dL Abnormal 0.6-1.0 Beta Globulin 0.9 g/dL 0.7-1.2 Gamma Globulin 1.0 g/dL 0.6-1.6 Albumin/Globulin Ratio 0.93 Impression See Comment 26 Laboratory test 10/10/2018 [facility] Phospholipid Ab IgA < 9.4 APL 27 finding [phone] Cardiolipin 10/10/2018 [facility] Phospholipid Ab < 9.4 MPL 28 Igg/Igm [phone] IgM, S Phospholipid Ab IgG < 9.4 GPL 29 BCR/Abl Trans 9:22 10/10/2018 [facility] BCR/abl (Fish ) Normal Fish [phone] Result Summary BCR/abl (Fish) Result Table See Comment 30 BCR/abl (Fish) Specimen Bone Marrow BCR/abl (Fish) Source See Comment 31 BCR/abl (Fish) Referral Reason See Comment 32 BCR/abl (Fish) Method See Comment 33 BCR/abl Results See Comment 34 BCR/abl (Fish) Interpretation See Comment 35 BCR/abl (Fish) Disclaimer See Comment 36 BCR/abl (Fish) Released By See Comment 37 Laboratory test 10/10/2018 [facility] Packed Cells SEE RESULTS 38 finding [phone] BELO <SEE NOTE> Type & Screen 10/10/2018 [facility] Patient Blood B Positive [phone] Type Antibody Screen NEGATIVE Laboratory test 10/10/2018 [facility] Erythrocyte Sed 82 mm/Hr High 0-20 39 finding [phone] Rate CBC Auto Diff 10/10/2018 [facility] White Blood 19.2 High 3.5-10.8 [phone] Count 10^3/uL Red Blood Count 2.12 10^6/uL Low 4.00-5.40 Hemoglobin 5.8 g/dL Critical low 14.0-18.0 40 Hematocrit 19 % Low 42-52 Mean Corpuscular Volume 89 fL Normal 80-94 Mean Corpuscular Hemoglobin 27 pg Normal 27-31 Mean Corpuscular HGB Conc 31 g/dL Normal 31-36 Red Cell Distribution Width 20 % High 10.5-15 Platelet Count 1351 10^3/uL High 150-450 41 Mean Platelet Volume 8.8 fL Normal 7.4-10.4 Abs Neutrophils 14.0 10^3/uL High 1.5-7.7 Abs Lymphocytes 2.9 10^3/uL Normal 1.0-4.8 Abs Monocytes 1.9 10^3/uL High 0-0.8 Abs Eosinophils 0.4 10^3/uL Normal 0-0.6 Abs Basophils 0.1 10^3/uL Normal 0-0.2 Abs Nucleated RBC 0.1 10^3/uL Granulocyte % 72.8 % Lymphocyte % 15.1 % Monocyte % 9.8 % Eosinophil % 2.0 % Basophil % 0.3 % Nucleated Red Blood Cells % 0.4 Laboratory test 10/10/2018 [facility] PSA Diagnostic 14.508 High 0-4.000 42 finding [phone] ng/mL Ferritin 11.4 ng/mL Low 24-336 Iron & Iron 10/10/2018 [facility] Total Iron 465 g/ dL High 250-450 Binding [phone] Binding Capacity Capacity Transferrin 332 mg/dL Normal 203-362 Iron < 17 g/dL Low 50-212 Unsaturated Iron Binding < 450 g/dL % Iron Saturation 4 % Low 15-55 Laboratory test 10/10/2018 [facility] C Reactive 21.63 mg/L High <8.01 finding [phone] Protein LDH 447 U/L High 140-271 Comp Metabolic 10/10/2018 [facility] Sodium 133 mmol/ L Low 135-145 Panel [phone] Potassium 3.8 mmol/L Normal 3.5-5.0 Chloride 102 mmol/L Normal 101-111 Co2 Carbon Dioxide 24 mmol/L Normal 22-32 Anion Gap 7 mmol/L Normal 2-11 Glucose 108 mg/dL High 70-100 Blood Urea Nitrogen 10 mg/dL Normal 6-24 Creatinine 0.94 mg/dL Normal 0.67-1.17 BUN/Creatinine Ratio 10.6 Normal 8-20 Calcium 8.8 mg/dL Normal 8.6-10.3 Total Protein 6.9 g/dL Normal 6.4-8.9 Albumin 4.1 g/dL Normal 3.2-5.2 Globulin 2.8 g/dL Normal 2-4 Albumin/Globulin Ratio 1.5 Normal 1-3 Total Bilirubin 0.20 mg/dL Normal 0.2-1.0 Alkaline Phosphatase 83 U/L Normal 34-104 Alt 8 U/L Normal 7-52 Ast 17 U/L Normal 13-39 Egfr Non- 79.3 >60 Egfr 96.0 >60 43 Bone Marrow 10/10/2018 [facility] BM Result See Interpretati 44 Chromosomes [phone] Summary <SEE NOTE> BM Chromosome Specimen Bone Marrow BM Chromosome Source See Comment 45 BM Referral Reason See Comment 46 BM Chromosome Method See Comment 47 BM Chromo Banding Method See Comment 48 BM Cromosome Results 46,XY[1] BM Chromosome Interpretation See Comment 49 Released By See Comment 50 Leukemia/Lymphoma 10/10/2018 [facility] Path (SEE 51 Phenot [phone] Interpretation NOTE) 2-8 Marker Comp Metabolic Panel 09/24/2018 [facility] Sodium 137 Normal 71 [phone] mmol/L 5- 14 5 Chloride 105 mmol/L Normal 101-111 Co2 Carbon Dioxide 26 mmol/L Normal 22-32 Glucose 107 mg/dL High 70-100 Blood Urea Nitrogen 11 mg/dL Normal 6-24 Creatinine 1.09 mg/dL Normal 0.67-1.17 BUN/Creatinine Ratio 10.1 Normal 8-20 Calcium 9.9 mg/dL Normal 8.6-10.3 Total Protein 7.3 g/dL Normal 6.4-8.9 Albumin 4.6 g/dL Normal 3.2-5.2 Globulin 2.7 g/dL Normal 2-4 Albumin/Globulin Ratio 1.7 Normal 1-3 Total Bilirubin 0.30 mg/dL Normal 0.2-1.0 Alkaline Phosphatase 96 U/L Normal 34-104 Alt 10 U/L Normal 7-52 Ast 21 U/L Normal 13-39 Egfr Non- 66.9 >60 Egfr 80.9 >60 52 Potassium 5.8 mmol/L High 3.5-5.0 Anion Gap 6 mmol/L Normal 2-11 Laboratory test 09/24/2018 [facility] C Reactive 2.82 mg/L Normal <8.01 finding [phone] Protein CBC Auto Diff 09/24/2018 [facility] White Blood 19.2 High 3.5-10.8 [phone] Count 10^3/uL Red Blood Count 2.65 10^6/uL Low 4.00-5.40 Hemoglobin 7.6 g/dL Low 14.0-18.0 Hematocrit 25 % Low 42-52 Mean Corpuscular Volume 93 fL Normal 80-94 Mean Corpuscular Hemoglobin 29 pg Normal 27-31 Mean Corpuscular HGB Conc 31 g/dL Normal 31-36 Red Cell Distribution Width 19 % High 10.5-15 Platelet Count 1301 10^3/uL High 150-450 Mean Platelet Volume 9.5 fL Normal 7.4-10.4 Abs Neutrophils 12.7 10^3/uL High 1.5-7.7 Abs Lymphocytes 4.0 10^3/uL Normal 1.0-4.8 Abs Monocytes 1.9 10^3/uL High 0-0.8 Abs Eosinophils 0.2 10^3/uL Normal 0-0.6 Abs Basophils 0.4 10^3/uL High 0-0.2 Abs Nucleated RBC 0.2 10^3/uL Granulocyte % 66.1 % Lymphocyte % 20.9 % Monocyte % 10.0 % Eosinophil % 1.1 % Basophil % 1.9 % Nucleated Red Blood Cells % 0.8 Cell Morphology 09/24/2018 [facility] Hypochromasia 2 + [phone] Polychromasia 1+ Anisocytosis 1+ Elliptocyte 1+ Laboratory test 09/24/2018 [facility] Pathologist Review (SEE NOTE) 53 finding [phone] Erythrocyte Sed Rate 68 mm/Hr High 0-20 54 Complement C3 140 mg/dL 75 - 175 55 Complement C4 44 mg/dL Abnormal 14 - 40 56 Anca AB Ser 09/24/2018 [facility] C-Anca Negative Negative [phone] P-Anca Negative Negative 57 Basic Metabolic Panel 04/10/2018 [facility] [address] Glucose 76 mg/dL Normal 74-409 78 [address] [place] [address] [phone] BUN 12 mg/dL Normal 7-18 Creatinine 1.1 mg/dL Normal 0.6-1.3 Glom Filtration Rate, Estimate >60 mL/min >60 If >60 mL/min >60 59 BUN/Creat 10.9 ratio Sodium 140 mmol/L Normal 136-145 Potassium 4.0 mmol/L Normal 3.5-5.1 Chloride 104 mmol/L Normal 98-107 Carbon Dioxide 30 mmol/L Normal 21-32 Anion Gap 6 mEq/L Low 8-16 Calcium 9.3 mg/dL Normal 8.5-10.1 CBS W/Automated 10/27/2017 [facility] White Blood 12.1 K/uL High 3.4-10.5 [address] [place] [address] [phone] Red Blood Count 4.29 M/uL Normal 4.20-5.80 Hemoglobin 13.2 gm/dL Normal 12.8-17.0 Hematocrit 39.3 % Normal 38.0-48.0 Mean Cell Volume 91.6 fl Normal 80.0-96.0 Mean Corpuscular HGB 30.8 pg Normal 27.0-33.0 Mean Corpuscular HGB Conc 33.6 g/dL Normal 31.7-36.0 Platelet Count 906 K/uL High 155-360 Red Cell Distri Width SD 52.7 fl High 36-51 Red Cell Distri Width %CV 16.3 % High 11.6-15.8 Mean Platelet Volume 10.7 fL High 6.6-10.6 Neut% 59.2 % Normal 33.0-73.0 Lymph % 25.4 % Normal 20.0-42.0 [place] % 13.8 % High 0.0-10.0 Eo% 1.3 % Normal 0.0-6.6 Bas% 0.3 % Normal 0.0-1.1 Neut# 7.14 K/uL High 1.8-7.0 Lymph # 3.07 K/uL Normal 1.0-4.0 [place] # 1.67 K/uL High 0.0-0.8 Eos # 0.16 K/uL Normal 0.0-0.5 Baso # 0.04 K/uL Normal 0.0-0.1 Comprehensive Metabolic 10/27/2017 [facility] Glucose 67 mg/dL Low 74-[address] [place] [address] [phone] BUN 8 mg/dL Normal 7-18 Creatinine 1.0 mg/dL Normal 0.6-1.3 Glom Filtration Rate, Estimate >60 mL/min >60 If >60 mL/min >60 61 BUN/Creat 8.0 ratio Sodium 136 mmol/L Normal 136-145 Potassium 4.4 mmol/L Normal 3.5-5.1 Chloride 101 mmol/L Normal 98-107 Carbon Dioxide 29 mmol/L Normal 21-32 Anion Gap 6 mEq/L Low 8-16 Calcium 9.5 mg/dL Normal 8.5-10.1 Total Protein 8.2 g/dL Normal 6.4-8.2 Albumin 4.2 g/dL Normal 3.4-5.0 Globulin 4.0 g/dL Normal 1.9-4.3 Alb/Glob 1.1 ratio Bilirubin,Total 0.3 mg/dL Normal 0.2-1.0 Sgot/Ast 24 U/L Normal 15-37 SGPT/Alt 16 U/L Normal 12-78 Alkaline Phosphatase 102 U/L Normal 45-117 Laboratory 10/27/2017 [facility] Vitamin 10.5 Low 30.0-100.0 62 test finding [address] D,25-Hydroxy ng/[place] [address] [phone] Iron-Tibc-%Sa 10/27/2017 [facility] Serum Iron 95 Normal 65-175 t [address] g/[place] [address] [phone] Total Iron Binding Capacity 349 g/dL Normal 250-450 Transferrin %Saturation 27 % Normal 12-57 Laboratory test 10/27/2017 [facility] Ferritin 92 ng/mL Normal 26-388 finding [address] [place] [address] [phone] Slide Review 10/27/2017 [facility] Slide Review (SEE NOTE) 63 [address] [place] [address] [phone] RBC Morphology 10/27/2017 [facility] Anisocytosis 1+ Only [address] [place] [address] [phone] Macrocytosis 0-1+ Target Cells 0-1+ Acanthocytes 0-1+ LDL Cholesterol 10/12/2017 [facility] [address] Cholesterol 246 mg/dL High < 200 64, [address] [place] [address] [phone] Triglycerides 161 mg/dL High <150 66 HDL Cholesterol 46 mg/dL >40 67 LDL-Cholesterol 168 mg/dL < 100 68 CBS W/Automated 09/22/2017 [facility] White Blood 11.7 K/uL High 3.4-10.5 [address] [place] [address] [phone] Red Blood Count 3.61 M/uL Low 4.20-5.80 Hemoglobin 11.2 gm/dL Low 12.8-17.0 Hematocrit 33.7 % Low 38.0-48.0 Mean Cell Volume 93.4 fl Normal 80.0-96.0 Mean Corpuscular HGB 31.0 pg Normal 27.0-33.0 Mean Corpuscular HGB Conc 33.2 g/dL Normal 31.7-36.0 Platelet Count 933 K/uL High 155-360 Red Cell Distri Width SD 54.1 fl High 36-51 Red Cell Distri Width %CV 16.3 % High 11.6-15.8 Mean Platelet Volume 10.3 fL Normal 6.6-10.6 Neut% 57.1 % Normal 33.0-73.0 Lymph % 26.9 % Normal 20.0-42.0 [place] % 12.0 % High 0.0-10.0 Eo% 3.6 % Normal 0.0-6.6 Bas% 0.4 % Normal 0.0-1.1 Neut# 6.67 K/uL Normal 1.8-7.0 Lymph # 3.15 K/uL Normal 1.0-4.0 [place] # 1.40 K/uL High 0.0-0.8 Eos # 0.42 K/uL Normal 0.0-0.5 Baso # 0.05 K/uL Normal 0.0-0.1 Iron-Tibc-%Sat 09/22/2017 [facility] Serum Iron 56 g/dL Low 65-[address] [place] [address] [phone] Total Iron Binding Capacity 306 g/dL Normal 250-450 Transferrin %Saturation 18 % Normal 12-57 Laboratory test 09/22/2017 [facility] Ferritin 78 ng/mL Normal 26-388 finding [address] [place] [address] [phone] Vitamin B12 And 09/22/2017 [facility] Vitamin B12 660 pg/mL Normal 193-[address] [place], [place] [address] [phone] Folic Acid 19.1 ng/mL High 3.1-17.5 Laboratory 09/22/2017 [facility] Vitamin 15.2 Low 30.0-100.0 70 test finding [address] D,25-Hydroxy ng/mL [place], [place] [id number] [phone] Slide Review (SEE NOTE) 71 CBS W/Automated 09/04/2017 [facility] White Blood 11.8 K/uL High 3.4-10.5 [address] [place] [address] [phone] Red Blood Count 4.31 M/uL Normal 4.20-5.80 Hemoglobin 13.1 gm/dL Normal 12.8-17.0 Hematocrit 39.8 % Normal 38.0-48.0 Mean Cell Volume 92.3 fl Normal 80.0-96.0 Mean Corpuscular HGB 30.4 pg Normal 27.0-33.0 Mean Corpuscular HGB Conc 32.9 g/dL Normal 31.7-36.0 Platelet Count 1063 K/uL High 155-360 Red Cell Distri Width SD 49.5 fl Normal 36-51 Red Cell Distri Width %CV 15.1 % Normal 11.6-15.8 Mean Platelet Volume 10.1 fL Normal 6.6-10.6 73 Neut# 7.48 K/uL High 1.8-7.0 Lymph # 2.93 K/uL Normal 1.0-4.0 [place] # 1.10 K/uL High 0.0-0.8 Eos # 0.19 K/uL Normal 0.0-0.5 Baso # 0.06 K/uL Normal 0.0-0.1 Comprehensive Metabolic 09/04/2017 [facility] Glucose 135 mg/dL High 74-106 Panel [address] [place] [address] [phone] BUN 22 mg/dL High 7-18 Creatinine 1.1 mg/dL Normal 0.6-1.3 Glom Filtration Rate, Estimate >60 mL/min >60 If >60 mL/min >60 74 BUN/Creat 20.0 ratio Sodium 136 mmol/L Normal 136-145 Potassium 4.4 mmol/L Normal 3.5-5.1 Chloride 101 mmol/L Normal 98-107 Carbon Dioxide 28 mmol/L Normal 21-32 Anion Gap 7 mEq/L Low 8-16 Calcium 9.4 mg/dL Normal 8.5-10.1 Total Protein 8.1 g/dL Normal 6.4-8.2 Albumin 4.2 g/dL Normal 3.4-5.0 Globulin 3.9 g/dL Normal 1.9-4.3 Alb/Glob 1.1 ratio Bilirubin,Total 0.2 mg/dL Normal 0.2-1.0 Sgot/Ast 31 U/L Normal 15-37 SGPT/Alt 23 U/L Normal 12-78 Alkaline Phosphatase 92 U/L Normal 45-117 Iron-Tibc-%Sat 09/04/2017 [facility] Serum Iron 85 g/dL Normal 65-175 [address] [place] [address] [phone] Total Iron Binding Capacity 352 g/dL Normal 250-450 Transferrin %Saturation 24 % Normal 12-57 Laboratory test 09/04/2017 [facility] Ferritin 141 ng/mL Normal 26-388 finding [address] [place] [address] [phone] LDH 486 U/L High 87-241 Gamma Glutamyl Transpeptidase 51 U/L Normal 5-85 Sedimentation Rate 12 mm/hr Normal 0-20 75 Slide Review 09/04/2017 [facility] Slide Review DIFF ORDERED [address] [place] [address] [phone] Laboratory test 09/04/2017 [facility] Path Review: <pending> finding [address] [place] [id number] [phone] Differential-WBC 09/04/2017 [facility] Total Cells 100 #CELLS Confirm [address] [place] [id number] [phone] Neutrophils% 68 % Normal 33-73 Lymph% 22 % Normal 20-42 Monocyte% 9 % Normal 0-10 Eosinophil% 1 % Normal 0-5 Platelet Estimate MARKED INCREASE Anisocytosis 1+ Rosalie Cells 1+ CBS W/Automated 08/16/2017 [facility] White Blood 15.1 K/uL High 3.4-10.[address] [place] [address] [phone] Red Blood Count 4.24 M/uL Normal 4.20-5.80 Hemoglobin 12.8 gm/dL Normal 12.8-17.0 Hematocrit 39.1 % Normal 38.0-48.0 Mean Cell Volume 92.2 fl Normal 80.0-96.0 Mean Corpuscular HGB 30.2 pg Normal 27.0-33.0 Mean Corpuscular HGB Conc 32.7 g/dL Normal 31.7-36.0 Platelet Count 1107 K/uL High 155-360 Red Cell Distri Width SD 49.0 fl Normal 36-51 Red Cell Distri Width %CV 14.9 % Normal 11.6-15.8 Mean Platelet Volume 10.0 fL Normal 6.6-10.6 Neut% 54.1 % Normal 33.0-73.0 Lymph % 30.1 % Normal 20.0-42.0 [place] % 13.2 % High 0.0-10.0 Eo% 2.1 % Normal 0.0-6.6 Bas% 0.5 % Normal 0.0-1.1 Neut# 8.18 K/uL High 1.8-7.0 Lymph # 4.55 K/uL High 1.0-4.0 [place] # 2.00 K/uL High 0.0-0.8 Eos # 0.32 K/uL Normal 0.0-0.5 Baso # 0.08 K/uL Normal 0.0-0.1 Slide Review 08/16/2017 [facility] Slide Review (SEE NOTE) 76 [address] [place] [address] [phone] Laboratory test finding 08/16/2017 [facility] Path Review: <pending> [address] [place] [address] [phone] RBC Morphology Only 08/16/2017 [facility] Hypochromia 1+ [address] [place] [address] [phone] Target Cells 0-1+ Tear Drop Cells 1+ Comprehensive 07/25/2017 [facility] Glucose 78 mg/dL Normal 74-106 77 Metabolic Panel [address] [place] [address] [phone] BUN 10 mg/dL Normal 7-18 Creatinine 0.9 mg/dL Normal 0.6-1.3 Glom Filtration Rate, Estimate >60 mL/min >60 If >60 mL/min >60 78 BUN/Creat 11.1 ratio Sodium 137 mmol/L Normal 136-145 Potassium 4.3 mmol/L Normal 3.5-5.1 Chloride 102 mmol/L Normal 98-107 Carbon Dioxide 27 mmol/L Normal 21-32 Anion Gap 8 mEq/L Normal 8-16 Calcium 8.8 mg/dL Normal 8.5-10.1 Total Protein 7.8 g/dL Normal 6.4-8.2 Albumin 3.9 g/dL Normal 3.4-5.0 Globulin 3.9 g/dL Normal 1.9-4.3 Alb/Glob 1.0 ratio Bilirubin,Total 0.3 mg/dL Normal 0.2-1.0 Sgot/Ast 24 U/L Normal 15-37 SGPT/Alt 22 U/L Normal 12-78 Alkaline Phosphatase 109 U/L Normal 45-117 CBS W/Automated 07/25/2017 [facility] White Blood 15.9 K/uL High 3.4-10.[address] [place] [address] [phone] Red Blood Count 3.85 M/uL Low 4.20-5.80 Hemoglobin 12.1 gm/dL Low 12.8-17.0 Hematocrit 35.7 % Low 38.0-48.0 Mean Cell Volume 92.7 fl Normal 80.0-96.0 Mean Corpuscular HGB 31.4 pg Normal 27.0-33.0 Mean Corpuscular HGB Conc 33.9 g/dL Normal 31.7-36.0 Platelet Count 1009 K/uL High 155-360 79 Red Cell Distri Width SD 49.3 fl Normal 36-51 Red Cell Distri Width %CV 14.9 % Normal 11.6-15.8 Mean Platelet Volume 10.2 fL Normal 6.6-10.6 Neut% 57.8 % Normal 33.0-73.0 Lymph % 26.5 % Normal 20.0-42.0 [place] % 13.3 % High 0.0-10.0 Eo% 1.8 % Normal 0.0-6.6 Bas% 0.6 % Normal 0.0-1.1 Neut# 9.21 K/uL High 1.8-7.0 Lymph # 4.22 K/uL High 1.0-4.0 [place] # 2.11 K/uL High 0.0-0.8 Eos # 0.28 K/uL Normal 0.0-0.5 Baso # 0.09 K/uL Normal 0.0-0.1 Iron-Tibc-%Sat 07/25/2017 [facility] Serum Iron 40 g/dL Low 65-175 [address] [place] [address] [phone] Total Iron Binding Capacity 325 g/dL Normal 250-450 Transferrin %Saturation 12 % Normal 12-57 Laboratory test 07/25/2017 [facility] Ferritin 110 ng/mL Normal 26-388 finding [address] [place] [address] [phone] Afp Tumor Marker,Serum 1.5 ng/mL 0.0-8.3 80 Gamma Glutamyl Transpeptidase 46 U/L Normal 5-85 Sedimentation Rate 8 mm/hr Normal 0-20 81 LDH 442 U/L High 87-241 Leukocyte Alk Phos 40 25-130 82 Slide Review 07/25/2017 [facility] Slide Review (SEE NOTE) 83 [address] [place] [address] [phone] Laboratory test 07/25/2017 [facility] Path Review: <pending> finding [address] [place] [address] [phone] Comprehensive 07/20/2017 [facility] Glucose 115 mg/dL High 74-10 84 Metabolic Panel [address] [place] [address] [phone] BUN 14 mg/dL Normal 7-18 Creatinine 0.9 mg/dL Normal 0.6-1.3 Glom Filtration Rate, Estimate >60 mL/min >60 If >60 mL/min >60 85 BUN/Creat 15.5 ratio Sodium 134 mmol/L Low 136-145 Potassium 4.1 mmol/L Normal 3.5-5.1 Chloride 101 mmol/L Normal 98-107 Carbon Dioxide 27 mmol/L Normal 21-32 Anion Gap 6 mEq/L Low 8-16 Calcium 9.9 mg/dL Normal 8.5-10.1 Total Protein 8.8 g/dL High 6.4-8.2 Albumin 4.6 g/dL Normal 3.4-5.0 Globulin 4.2 g/dL Normal 1.9-4.3 Alb/Glob 1.1 ratio Bilirubin,Total 0.4 mg/dL Normal 0.2-1.0 Sgot/Ast 26 U/L Normal 15-37 SGPT/Alt 26 U/L Normal 12-78 Alkaline Phosphatase 117 U/L Normal 45-117 Laboratory test 07/20/2017 [facility] Lipase 129 U/L Normal 56-[address] [place] [address] [phone] Laboratory test 07/20/2017 [facility] D-Dimer, < 0.[address] Quantitative ug/mL [place] [address] [phone] Differential-WB 07/20/2017 [facility] Total Cells 100 C Conf[address] Counted #CELLS [place] [address] [phone] Neutrophils% 91 % High 33-73 Lymph% 4 % Low 20-42 Atypical Lymph% 2 % Normal 0-7 Monocyte% 3 % Normal 0-10 Platelet Estimate MARKED INCREASE Acanthocytes 0-1+ Path Review: 07/20/2017 [facility] Path Review: INDICATED,SLIDE [address] <SEE NOTE> [place] [address] [phone] Slide Review 07/20/2017 [facility] Slide Review DIFF ORDERED [address] [place] [address] [phone] CBS 07/20/2017 [facility] White Blood 16.1 K/uL High 3.4- W/Automated [address] Count 10.5 Diff [place] [address] [phone] Red Blood Count 4.47 M/uL Normal 4.20-5.80 Hemoglobin 13.5 gm/dL Normal 12.8-17.0 Hematocrit 40.3 % Normal 38.0-48.0 Mean Cell Volume 90.2 fl Normal 80.0-96.0 Mean Corpuscular HGB 30.2 pg Normal 27.0-33.0 Mean Corpuscular HGB Conc 33.5 g/dL Normal 31.7-36.0 Platelet Count 1114 K/uL High 155-360 Red Cell Distri Width SD 46.9 fl Normal 36-51 Red Cell Distri Width %CV 14.7 % Normal 11.6-15.8 Mean Platelet Volume 9.9 fL Normal 6.6-10.6 88 Neut# 14.01 K/uL High 1.8-7.0 Lymph # 1.42 K/uL Normal 1.0-4.0 [place] # 0.58 K/uL Normal 0.0-0.8 Eos # 0.02 K/uL Normal 0.0-0.5 Baso # 0.03 K/uL Normal 0.0-0.1 1 Verbal to [id number] by [id number] at 1445 on 02/05/19.Results read back accurately 2 Critical Result HGB:6.1 Called to and read back by: [id number] at: 01/08/2019 11:42:14 by:[id number] 3 Because ethnic data is not always readily [...] 15-29 5 Kidney failure <15 (or dialysis) 4 Serum levels of PSA measured using the [facility] DXI Hybritech immunoassay should not be interpreted as absolute evidence of the presence or absence of disease. The PSA value should be used in conjunction with other pertinent clinical diagnostic procedures. The values obtained with different assay methods or kits cannot be used interchangeably. 5 SEE RESULTS BELOW [id number] BP TRANSFUSED 01/08/19 1250 [id number] BP PC TRANSFUSED 01/08/19 1516 6 Consistent with Previous Results Reported on 11/29/18 7 Because ethnic data is not always readily [...] 15-29 5 Kidney failure <15 (or dialysis) 8 Platelet count confirmed by estimate 9 Because ethnic data is not always readily [...] 15-29 5 Kidney failure <15 (or dialysis) 10 Serum levels of PSA measured using the [facility] DXI Hybritech immunoassay should not be interpreted as absolute evidence of the presence or absence of disease. The PSA value should be used in conjunction with other pertinent clinical diagnostic procedures. The values obtained with different assay methods or kits cannot be used interchangeably. 11 Findings consistent with patient's known myeloproliferative disorder and are consistent with prior results. Reviewed by Dr. Marr 12 Normocytic anemia. Absolute neutrophilia and monocytosis with occasional circulating blasts. Thrombocytosis. The findings are concerning for a myeloproliferative neoplasm. Reviewed by Doretha Viramontes MD 13 Because ethnic data is not always readily [...] 15-29 5 Kidney failure <15 (or dialysis) 14 Normocytic anemia. Absolute thrombocytosis with normal platelet morphology. Leukocytosis with absolute neutrophilia. The findings are concerning for a myeloproliferative neoplasm. Reviewed by Doretha Viramontes MD 15 Because ethnic data is not always readily [...] 15-29 5 Kidney failure <15 (or dialysis) 16 BONE MARROW BIOPSY 17 Plasma von Willebrand factor (VWF) multimer analysis reveals absence or decreased abundance of the highest molecular weight multimers (HMWM), but no definitely increased abundance of lower molecular weight von Willebrand factor (VWF) multimers, suggesting an acquired rather than congenital abnormality of von Willebrand factor (VWF) multimers, if artifact can be excluded. Bonafide decreased HMWM VWF multimers can occur in association with aortic valvular stenosis, hypertrophic obstructive cardiomyopathy, left ventricular assist device, congenital heart disease, thrombocytosis or monoclonal gammopathy, in addition to less frequent associations with other myeloproliferative or lymphoproliferative disorders, intravascular coagulation and fibrinolysis (ICF/DIC), vasculitis, thrombotic thrombocytopenic purpura (TTP) or hemolytic-uremic syndrome (HUS), etc., and is frequently but not always accompanied by discordantly lower VWF ristocetin cofactor activity and/or VWF activity (latex immunoassay) relative to VWF antigen level. Alternatively, similar reductions of HMWM VWF multimers can be artifactual, reflecting suboptimal sample processing (e.g., processing of blood and plasma samples at cold temperatures rather than room temperatures). Suggest clinical correlation, and if indicated consider follow-up von Willebrand disease (VWD) test panel ([facility] Coagulation Consultation [id number], including VWF multimer analysis request), with careful attention to specimen preparation. ADDITIONAL INFORMATION This test was developed and its performance characteristics determined by [facility] in a manner consistent with CLIA requirements. This test has not been cleared or approved by the U.S. Food and Drug Administration. Test Performed by: [address] [id number] 18 ADDITIONAL INFORMATION This test has been modified from the lift builder whole's instructions. Its performance characteristics were determined by [facility] in a manner consistent with CLIA requirements. This test has not been cleared or approved by the U.S. Food and Drug Administration. 19 ADDITIONAL INFORMATION This test has been modified from the lift builder whole's instructions. Its performance characteristics were determined by [facility] in a manner consistent with CLIA requirements. This test has not been cleared or approved by the U.S. Food and Drug Administration. 20 ADDITIONAL INFORMATION This test has been modified from the lift builder whole's instructions. Its performance characteristics were determined by [facility] in a manner consistent with CLIA requirements. This test has not been cleared or approved by the U.S. Food and Drug Administration. 21 IMPRESSION: Although the von Willebrand factor (VWF) antigen, VWF latex immunoassay activity and coagulation factor VIII activity are within or above the normal reference range, the discrepantly lower VWF activity compared to VWF antigen, along with the loss of highest molecular weight VWF multimers, are suggestive of an acquired abnormality of VWF multimers. Suggest clinical correlation. See comments. COMMENTS: Plasma von Willebrand factor (VWF) multimer analysis reveals absence or decreased abundance of the highest molecular weight multimers (HMWM), but no definitely increased abundance of lower molecular weight von Willebrand factor (VWF) multimers, suggesting an acquired rather than congenital abnormality of von Willebrand factor (VWF) multimers, if artifact can be excluded. Bonafide decreased HMWM VWF multimers can occur in association with aortic valvular stenosis, hypertrophic obstructive cardiomyopathy, left ventricular assist device, congenital heart disease, thrombocytosis or monoclonal gammopathy, in addition to less frequent associations with other myeloproliferative or lymphoproliferative disorders, intravascular coagulation and fibrinolysis (ICF/DIC), vasculitis, thrombotic thrombocytopenic purpura (TTP) or hemolytic-uremic syndrome (HUS), etc., and is frequently but not always accompanied by discordantly lower VWF ristocetin cofactor activity and/or VWF activity (latex immunoassay) relative to VWF antigen level. Alternatively, similar reductions of HMWM VWF multimers can be artifactual, reflecting suboptimal sample processing (e.g., processing of blood and plasma samples at cold temperatures rather than room temperatures). Suggest clinical correlation, and if indicated consider follow-up von Willebrand disease (VWD) test panel (MML Coagulation Consultation [id number], including VWF multimer analysis request), with careful attention to specimen preparation. Note: Elevation of von Willebrand factor (VWF), and/or factor VIII, can reflect "acute phase" reaction, acute or chronic inflammation, liver disease, vasculitis, estrogen therapy or . 22 Randall Stephens M.D. 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 Comment: CALR mutation is identified in approximately 49-88% of JAK2 and MPL-wild type essential thrombocythemia (ET) and primary myelofibrosis (PMF) patients, and at significantly lower frequencies in other myeloid neoplasms such as refractory anemia with ringed sideroblasts associated with marked thrombocytosis (13%), myelodysplastic syndrome (8%), chronic myelomonocytic leukemia (3%) or atypical chronic myeloid leukemia (3%). Correlation with clinical and pathologic findings is required for a definitive diagnosis. No further testing for MPL mutation was performed as it is not indicated per MPNR test algorithm. See test catalogue for additional information: http://[email or web address].ThoughtFocus/test-catalog/Overview/88294. Method Summary - CALR: Exon 9 of CALR was amplified from genomic DNA by polymerase chain reaction (PCR). The size of the PCR product was analyzed by capillary electrophoresis on the MELISSA 3130xl Genetic Analyzer. The analytic sensitivity of this assay is approximately 6% for the majority of CALR mutations and is approximately 20% for the rare type 1-bp deletion (See [facility] Interpretive Handbook for details). Peripheral blood, JAK2 V617F mutation analysis: Negative for JAK2 V617F. Method summary - JAK2 V617F analysis: Quantitative, allele-specific polymerase chain reaction (PCR) assay was performed using extracted genomic DNA to evaluate for the point mutation causing JAK2 V617F. The analytic sensitivity of this assay has been determined at 0.06% (see [facility] Interpretive Handbook for method details). Signing Pathologist: Ryan Sears M.D., Ph.D. ADDITIONAL INFORMATION This test was developed and its performance characteristics determined by [facility] in a manner consistent with CLIA requirements. This test has not been cleared or approved by the U.S. Food and Drug Administration. Test Performed by: [facility] - [address] [place] [address] 26 RESULT: No apparent monoclonal protein on serum electrophoresis. 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 34 nuc cecil(ABL1,BCR)x2[500] Of 500 nuclei, 0% had fusion of BCR and ABL1. 35 The result is within normal limits for the BCR and ABL1 gene regions. Additional cytogenetic studies are reported separately. 36 Analyte Specific Reagent (ASR). This test was developed using an analyte specific reagent. Its performance characteristics were determined by [facility] in a manner consistent with CLIA requirements. This test has not been cleared or approved by the U.S. Food and Drug Administration. This FISH test does not rule out other chromosome abnormalities. 37 RESULT: Dheeraj Rodriguez M.D. Test Performed by: [address] [address] 38 SEE RESULTS BELOW [id number] BP PC TRANSFUSED 10/10/18 1422 [id number] BP PC TRANSFUSED 10/10/18 1120 39 Test Performed by: [facility] [address] [place] [address] Owen Marr M.D. Director of Laboratory 40 Critical Result HGB:5.8 Called to and read back by: [email or web address] at: 10/10/2018 10:14:48 by:[id number] 41 Consistent with Previous Results Reported on 09/24/18 Critical Result PLT:1351 Called to and read back by: [email or web address] at: 10/10/2018 10:14:48 by:[id number] Critical Result PLT:1351 Called to and read back by: [email or web address] at: 10/10/2018 10:14:58 by:[id number] 42 Serum levels of PSA measured using the Emerald Jeanmarie DXI Hybritech immunoassay should not be interpreted as absolute evidence of the presence or absence of disease. The PSA value should be used in conjunction with other pertinent clinical diagnostic procedures. The values obtained with different assay methods or kits cannot be used interchangeably. 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 49 Although 20 metaphases are routinely examined, only 1 was identified and it appeared normal but the chromosome morphology was suboptimal. Additional cytogenetic studies are reported separately. 50 RESULT: Dheeraj Rodriguez M.D. Test Performed by: [address] [address] 51 FINAL DIAGNOSIS: Specimen Source: Bone marrow Flow cytometry immunophenotypic analysis: No immunophenotypic abnormality identified. Interpretative data: Blasts: 0% Lymphocytes: 20% of WBCs B-cells: 14% of lymphocytes with no evidence of light chain restriction or other immunophenotypic abnormalities identified. T-cells/NK cells: No aberrant population detected. Markers tested: CD3, CD10, CD16, CD19, CD34, CD45, kappa surface light chains, lambda surface light chains, 7-AAD. Quality Assessment: Acceptable Viability: Acceptable Viable lymphocytes (7-AAD): 100% Specimen received within validated guidelines. A Bean-Giemsa stained slide prepared from the flow cytometry specimen was examined for quality purposes. Electronically signed by: Owen Marr MD 10/15/18 1105 Technical component performed by: [place] [address] Floor Supervisor: Dheeraj Gomez II, MD, PhD. 52 Because ethnic data is not always readily [...] 15-29 5 Kidney failure <15 (or dialysis) 53 Leukocytosis with absolute neutrophilia and severe thrombocytosis most suggestive of a myeloproliferative disorder (likely essential thrombocythemia). Mild normocytic anemia noted. A concurrent inflammatory/reactive process should be ruled out. Additional studies are warranted. Reviewed by Dr. Justa Mcgraw notified of these results on 08/24/2018 at approximately 4:27 PM CORRECTED REPORT --- Corrected on 09/24/18 1609 [...] studies are warranted. Reviewed by Dr. Marr 54 Test Performed by: [facility] [address] [place] [address] Owen Marr M.D. Director of Laboratory 55 Test Performed by: [facility] - [place] [address] [place] [address] 56 Test Performed by: [facility] - [address] [address] 57 Negative for cANCA and pANCA patterns by immunofluorescence. ADDITIONAL INFORMATION This test was developed and its performance characteristics determined by [facility] in a manner consistent with CLIA requirements. This test has not been cleared or approved by the U.S. Food and Drug Administration. Test Performed by: [facility] - [address] [address] 58 R51 HEADACHE I10 59 Note: Persistent reduction for 3 months or more in an eGFR <60 mL/min/1.73 m2 defines CKD. Patients with eGFR values >/=60 mL/min/1.73 m2 may also have CKD if evidence of persistent proteinuria is present. The original MDRD equation for estimated GFR is not valid for patients less than 18 years of age. Additional information may be found at www.kdoqi.org. 60 D47.1 D72.829 61 Note: Persistent reduction for 3 months or more in an eGFR <60 mL/min/1.73 m2 defines CKD. Patients with eGFR values >/=60 mL/min/1.73 m2 may also have CKD if evidence of persistent proteinuria is present. The original MDRD equation for estimated GFR is not valid for patients less than 18 years of age. Additional information may be found at www.kdoqi.org. 62 Vitamin D deficiency has been defined by the [place] of Medicine and an Endocrine Society practice guideline as a level of serum 25-OH vitamin D less than 20 ng/mL (1,2). The Endocrine Society went on to further define vitamin D insufficiency as a level between 21 and 29 ng/mL (2). 1. IOM ([place] of [employer]). 2010. Dietary reference intakes for calcium and D. [place]: The National Academies Press. 2. Chucho MF, Angela ABDULLAHI, Radha TOLLIVER, et al. Evaluation, treatment, and prevention of vitamin D deficiency: an Endocrine Society clinical practice guideline. JCEM. 2010; 96(7):1911-30. Performed at: RN - [facility] [address] [id number] Grievance Coordinator: Mehnaz Vo MD, Phone: [phone] 63 Instrument flagged sample for slide review. Less than 10% Bands seen, no other immature WBC's seen. Platelet estimate=MARKED INCREASE 64 I10 65 Reference Guidelines*: Desirable: ........... < 200 mg/dL Borderline High: ..... 200-239 mg/dL High: ................ >=240 mg/dL * The National Cholesterol Education Program (NCEP) 66 Reference Guidelines*: Normal: ............. < 150 mg/dL Borderline High: .... 150-199 mg/dL High: ............... 200-499 mg/dL Very High: .......... > 500 mg/dL * Source: National Cholesterol Education Program (NCEP) 67 Reference Guidelines*: Low HDL: ..... < 40 mg/dL Normal: ..... 40-60 mg/dL Desirable: ... > 60 mg/dL *The National Cholesterol Education Program(NCEP) 68 Reference Guidelines*: Optimal:........... <100 mg/dL Near Optimal....... 100-129 mg/dL Borderline High.... 130-159 mg/dL High............... 160-189 mg/dL Very High.......... >=190 mg/dL * Source: National Cholesterol Education Program (NCEP) 69 D47.1 D72.829 70 Vitamin D deficiency has been defined by the [place] of [employer] and an Endocrine Society practice guideline as a level of serum 25-OH vitamin D less than 20 ng/mL (1,2). The Endocrine Society went on to further define vitamin D insufficiency as a level between 21 and 29 ng/mL (2). 1. IOM ([place] of [employer]). 2010. Dietary reference intakes for calcium and D. [place]: The National Academies Press. 2. Chucho MF, Angela ABDULLAHI, Radha TOLLIVER, et al. Evaluation, treatment, and prevention of vitamin D deficiency: an Endocrine Society clinical practice guideline. JCEM. 2010; 96(7):1911-30. Performed at: RN - [facility] [address] [id number] Grievance Coordinator: Mehnaz Vo MD, Phone: [phone] 71 Instrument flagged sample for slide review. Less than 10% Bands seen, no other immature WBC's seen. RBC morphology essentially normal. Platelet estimate=MARKED INCREASE 72 D72.829 73 09/04/17 1600: NEUT% previously reported as: 63.6 % Amended result called to: [] - 09/04/17 at 1600 09/04/17 1600: LYMPH % previously reported as: 24.9 % Amended result called to: [] 09/04/17 at 1600 09/04/17 1600: MONO % previously reported as: 9.4 % Amended result called to: [] - 09/04/17 at 1600 09/04/17 1600: EO% previously reported as: 1.6 % Amended result called to: [] 09/04/17 at 1600 09/04/17 1600: BAS% previously reported as: 0.5 % Amended result called to: [] 09/04/17 at 1600 74 Note: Persistent reduction for 3 months or more in an eGFR <60 mL/min/1.73 m2 defines CKD. Patients with eGFR values >/=60 mL/min/1.73 m2 may also have CKD if evidence of persistent proteinuria is present. The original MDRD equation for estimated GFR is not valid for patients less than 18 years of age. Additional information may be found at www.kdoqi.org. 75 Method: Sediplast Modified Westergren 76 Instrument flagged sample for slide review. Less than 10% Bands seen, no other immature WBC's seen. Platelet estimate=MARKED INCREASE 77 D72.829 D47.3 78 Note: Persistent reduction for 3 months or more in an eGFR <60 mL/min/1.73 m2 defines CKD. Patients with eGFR values >/=60 mL/min/1.73 m2 may also have CKD if evidence of persistent proteinuria is present. The original MDRD equation for estimated GFR is not valid for patients less than 18 years of age. Additional information may be found at www.kdoqi.org. 79 Result confirmed by repeat analysis. 80 Normal values apply only to males and to non females. These results are not interpretable for females. Teresa ECLIA methodology. Values obtained with different assay methods or kits cannot be used interchangeably. Results cannot be interpreted as absolute evidence of the presence or absence of malignant disease. Performed at: [facility] [address] [id number] Grievance Coordinator: Mehnaz Vo MD, Phone: [phone] 81 Method: Sediplast Modified Westergren 82 Performed at: [facility] [address] [id number] Grievance Coordinator: Mehnaz Vo MD, Phone: [phone] 83 Instrument flagged sample for slide review. Less than 10% Bands seen, no other immature WBC's seen. RBC morphology essentially normal. Platelet estimate=MARKED INCREASE 84 STOMACH PAIN,VOMITING,LOOSE STOOL 85 Note: Persistent reduction for 3 months or more in an eGFR <60 mL/min/1.73 m2 defines CKD. Patients with eGFR values >/=60 mL/min/1.73 m2 may also have CKD if evidence of persistent proteinuria is present. The original MDRD equation for estimated GFR is not valid for patients less than 18 years of age. Additional information may be found at www.kdoqi.org. 86 <=0.49 ug/mL - Low likelihood of DIC, DVT or Pulmonary Embolism >0.49 ug/mL - Additional testing should be done to rule out DIC, DVT, or Pulmonary embolism as clinically indicated. ([facility] has established a 97.89% negative predictive value for thrombotic disease when a cutoff value of 0.5 ug/mL is used.) 87 INDICATED,SLIDE SENT Hematology Consultation Final Report Case# [id number] Final Diagnosis Review of peripheral blood smear [...] at 3:21PM, Report electronically signed Performed at: [facility] [id number] [id number] 07/24/17 1424: PATH REVIEW: previously reported as: INDICATED,SLIDE SENT Amended result called to: - 07/24/17 at 1424 CHECKED BY CINDY 88 07/20/17 1042: NEUT% previously reported as: 87.3 [...] called to: [] - 07/20/17 at 1042 Procedures Date Code Description Status 08/16/2017 84307 Diagnostic Bone Marrow, Biopsy And Aspirations Completed 05/01/2017 26263 Eye Exam New Patient Comprehensive Completed 02/23/2016 [id number] Colonoscopy Completed 02/16/2016 [id number] Colonoscopy Completed Encounters Type Date Location Provider Dx Diagnosis Office Visit 11/28/2018 Family Medicine Clune, D47.1 Chronic 9:00a [address] Jenniferleigh, myeloproliferative [employer]GER disease F17.210 Nicotine dependence, cigarettes, uncomplicated F43.21 Adjustment disorder with depressed mood K59.00 Constipation, unspecified R13.10 Dysphagia, unspecified Office Visit 10/05/2018 11:30a Surgical Office Inga, D64.9 Anemia, Jose, unspecified MD,FACS Office Visit 10/02/2018 3:15p [facility] Medicine Cassidy, D64.9 Anemia, [address] [facility] unspecified [employer]GER J20.9 Acute bronchitis, unspecified Office Visit 07/16/2018 Family Clune, I10 Essential 9:30a Medicine [facility], CAGE SHIFT MANAGER (primary) RD hypertension R51 Headache H53.9 Unspecified visual disturbance R39.198 Other difficulties with micturition Z71.6 Tobacco abuse counseling Office Visit 04/16/2018 Family Joseune, I10 Essential 9:30a Medicine [facility], CAGE SHIFT MANAGER (primary) RD hypertension F17.210 Nicotine dependence, cigarettes, uncomplicated Z71.6 Tobacco abuse counseling G47.9 Sleep disorder, unspecified Office Visit 02/28/2018 Family Cassidy, G47.9 Sleep disorder, 11:30a [facility], [employer] MANAGER unspecified RD M54.5 Low back pain R10.9 Unspecified abdominal pain Office Visit 10/27/2017 Oncology Boufal, D47.1 Chronic 9:00a Office Luisana, DO myeloproliferative disease Office Visit 10/12/2017 Family Cassidy, I10 Essential (primary) 9:30a Medicine [facility], hypertension RD [employer]AGE [employer]GER Office Visit 09/22/2017 Oncology Boufal, D47.1 Chronic 8:30a Office Luisana, DO myeloproliferative disease B18.8 Other chronic viral hepatitis Office Visit 08/28/2017 Oncology Boufal, D47.1 Chronic 9:00a Office Luisana, DO myeloproliferative disease Office Visit 08/09/2017 Oncology Boufal, D72.829 Elevated white blood 9:00a Office Luisana, DO cell count, unspecified D47.3 Essential (hemorrhagic) thrombocythemia B18.8 Other chronic viral hepatitis Office Visit 07/25/2017 12:00p Oncology Office Aleal, D72.829 Elevated white Luisana, DO blood cell count, unspecified B18.8 Other chronic viral hepatitis D47.3 Essential (hemorrhagic) thrombocythemia D72.829 Elevated white blood cell count, unspecified D47.3 Essential (hemorrhagic) thrombocythemia B18.8 Other chronic viral hepatitis Office Visit 06/20/2017 Family Gonzalez, J18.0 Bronchopneumonia, 3:15p Medicine [place] KELLY Dubon unspecified organism RD Office Visit 04/24/2017 Family Benjamin, 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 10:00a [facility], subcu RD , [employer]NAGER of trunk H02.9 Unspecified disorder of eyelid Office Visit 03/28/2017 Family Benjamin G47.9 Sleep disorder, 9:30a [facility] Kalyn, [employer]AGE SHIFT MANAGER unspecified RD M54.5 Low back pain Z72.0 Tobacco use Z71.6 Tobacco abuse counseling R63.4 Abnormal weight loss Office Visit 01/23/2017 10:45a [facility] Kalyn Benjamin M54.[address] [employer]GER pain G47.9 Sleep disorder, unspecified R63.4 Abnormal weight loss Z23 Encounter for immunization Office Visit 01/10/2017 9:45a [facility] Cassiyd, G89.[address] Jennifermary, [employer]NAGER pain G47.9 Sleep disorder, unspecified Office Visit 12/29/2016 Family Benjamin F17.210 Nicotine 9:00a [facility] GERALD Mccain dependence, RD cigarettes, uncomplicated G89.29 Other chronic pain G47.9 Sleep disorder, unspecified R63.4 Abnormal weight loss Office Visit 08/16/2015 1:41p Francie Patel, K29.60 Other [facility] M54.5 Low back pain Plan of Treatment Future Appointment(s):03/14/2019 8:00 am - Kalyn Benjamin FNP at [facility] RD02/05/2019 - Kayln Benjamin FNPD47.1 Chronic myeloproliferative diseaseComments:Blood work as ordered by Hem/onc todayI highly encourage you to do the stool samples as soon as possible.F17.210 Nicotine dependence, cigarettes, uncomplicatedComments:continue on frlvkdeR52 Essential (primary) hypertensionComments:BP is very well controlledOrthostatic pressures in office are OK, however didn't take medication today and symptoms are very consistent with orthostatic hypotension. Adjust blood pressure medication down - STOP metoprolol. Continue on 1/2 Lisinopril (20 mg) a day.Follow up:4-6 weeks recheck HTN off medication and clrmjoyQ83.00 Constipation, unspecifiedComments:Continue on stool softener -G47.09 Other insomniaComments:Discussed using every other night - will continue for short term only 6-8 weeks.
[2019-02-25] MEDS: NS 0.9% 1000 ML** 1,000 ML IV SCH (11:09)
[2019-02-25] MEDS: Pantoprazole IV* 40 MG IV SCH ×2 (12:07→21:20)
[2019-02-25] MEDS: HydroxyUREA CAP* 500 MG CAP PO SCH (12:34)
[2019-02-25] MEDS ORDERED: Nicotine PATCH 21 MG/24 HR* PATCH TRANSDERM SCH (18:00)
[2019-02-25] MEDS: oxyCODONE TAB* 5 MG TAB PO PRN ×2 (19:01→23:10)
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
[2019-02-25] MEDS: Nicotine Patch Removal NOTE PATCH OFF SCH (23:10)
[2019-02-26] MEDS: NS 0.9% 1000 ML** 1,000 ML IV SCH (00:11)
[2019-02-26] MEDS: oxyCODONE TAB* 5 MG TAB PO PRN ×4 (05:21→22:28)
[2019-02-26 06:28] LABS: ABS Basophils 0.1 10^3/ul (0-0.2); ABS Eosinophils 0.6 10^3/ul (0-0.6); ABS Lymphocytes 2.7 10^3/ul (1.0-4.8); ABS Monocytes 1.4 10^3/ul (0-0.8); ABS Neutrophils 9.3 10^3/ul (1.5-7.7); Eosinophil % 4.4 %; Hematocrit 24 % (42-52); Hemoglobin 7.9 g/dL (14.0-18.0); Lymphocyte % 19.1 %; Mean Corpuscular HGB Conc 33 g/dL (31-36); Mean Corpuscular Hemoglobin 28 pg (27-31); Mean Corpuscular Volume 87 fL (80-94); Mean Platelet Volume 8.2 fL (7.4-10.4); Nucleated Red Blood Cells % 0.1; Platelet Count 1860 10^3/uL (150-450); Red Blood Count 2.82 10^6 /uL (4.18-5.48); Red Cell Distribution Width 17 % (10-15); White Blood Count 14.1 10^3/uL (3.5-10.8)
[2019-02-26 06:44] LABS: Albumin 3.7 g/dL (3.2-5.2); Albumin/Globulin Ratio 1.7 (1-3); BUN/Creatinine Ratio 17.3 (8-20); EGFR African American 85.2 (>60); EGFR Non-African American 70.4 (>60); Globulin 2.2 g/dL (2-4); Potassium 4.5 mmol/L (3.5-5.0); Total Bilirubin 0.2 mg/dL (0.2-1.0); Total Protein 5.9 g/dL (6.4-8.9)
[2019-02-26] MEDS ORDERED: Heparin 2 UNITS/ML IVPREMIX* 1,000 ML IV ONE (09:02)
[2019-02-26] MEDS ORDERED: fentaNYL* 50 MCG/ML 2 ML VIAL (100 MCG VIAL) ONE ×4 (09:19→16:46)
[2019-02-26] MEDS: Pantoprazole IV* 40 MG IV SCH ×2 (11:34→22:28)
[2019-02-26] MEDS: Nicotine PATCH 21 MG/24 HR* PATCH TRANSDERM SCH (11:36)
[2019-02-26] MEDS: Lisinopril TAB* 10 MG PO SCH (11:37)
[2019-02-26] MEDS ORDERED: Midazolam* 1 MG/ML 10 ML VIAL (10 MG) ONE ×2 (15:59→16:46)
[2019-02-26] MEDS: HydroxyUREA CAP* 500 MG CAP PO SCH (18:29)
--- NOTE | 2019-02-26 21:44 | PRO ---
DATE: 02/26/19 - ROOM #[id number] REFERRING PHYSICIAN: Saran Gorman.* PROCEDURE: Upper gastrointestinal endoscopy to the distal duodenum. INDICATION: This 69-year-old man with thrombocytosis related to primary hematologic disorder and prostate cancer, status post radiation 12 years ago with a stated history of radiation proctitis; also has a history of clotting disorder and has been on Eliquis and baby aspirin. He has also been on omeprazole 40 mg. He was found to be anemic 4 days ago, hemoglobin 5.8 and he has been transfused 2 units getting up to 8.3 yesterday and settling down to 7.9 today. His BUN was 18 today. In October, upper endoscopy was unrevealing. Flexible sigmoidoscopy without prep to the transverse showed brown formed stool and no source of chronic bleeding. There was an area irritated and oozing blood in the rectum, felt by Dr Bañuelos to be most likely enema trauma though with anticoagulation indicated acutely at that time, the area was clipped. The patient states that he has not had a bowel movement in 4 days. He normally takes a stool softener. Earlier today, he received a vena cava filter. He was seen alone today and consent obtained that way. He is unmarried, has no children, and says his friend is taking care of his dog and house. ENDOSCOPIST: Dr. Leo. MEDICATIONS: Midazolam 10, fentanyl 100. FINDINGS: He is a somewhat gruff older man, in no overt distress. He was positioned left side down and moderate sedation induced with sequential doses of medication. He tolerated the exam well. EGD: Larynx - limited views are normal. Esophagus - easily entered. Mucosa normal in the upper, mid, and lower esophagus with EG junction at 40. There were no erosions and no blood seen. Stomach - generally normal mucosa in cardia, fundus, body and antrum. No blood was seen. Duodenum - the pylorus, bulb, and second through fourth portions appear normal. Following the procedure, digital rectal was done and no specimen available whatsoever. The rectal contour is felt somewhat scarred and restricted. IMPRESSION: 1) Normal EGD - source of chronic blood loss not seen even though he has been on Eliquis and low-dose aspirin. His iron panel during the first admission in October 2018 showed profound iron deficiency with ferritin of 11.4, iron saturation of 4% (17/465). It is possible substantial amount of his problem is preexisting iron deficiency with failure to replete iron stores while taking acid blockade; he had very little oral iron. Situation is complex and the next step would likely be parenteral iron, full colonoscopy if his general status permits it prior to working up the small bowel. [id number]/[facility] #: [id number] MTDD
[2019-02-26] MEDS: Nicotine Patch Removal NOTE PATCH OFF SCH (22:28)
[2019-02-27 06:07] LABS: ABS Basophils 0.1 10^3/ul (0-0.2); ABS Eosinophils 0.5 10^3/ul (0-0.6); ABS Lymphocytes 2.1 10^3/ul (1.0-4.8); ABS Monocytes 1.6 10^3/ul (0-0.8); ABS Neutrophils 12.7 10^3/ul (1.5-7.7); Eosinophil % 2.7 %; Hematocrit 23 % (42-52); Hemoglobin 7.4 g/dL (14.0-18.0); Lymphocyte % 12.3 %; Mean Corpuscular HGB Conc 33 g/dL (31-36); Mean Corpuscular Hemoglobin 28 pg (27-31); Mean Corpuscular Volume 85 fL (80-94); Mean Platelet Volume 7.9 fL (7.4-10.4); Nucleated Red Blood Cells % 0.2; Platelet Count 1555 10^3/uL (150-450); Red Blood Count 2.67 10^6 /uL (4.18-5.48); Red Cell Distribution Width 16 % (10-15)
[2019-02-27 06:11] LABS: Albumin 3.4 g/dL (3.2-5.2); Albumin/Globulin Ratio 1.4 (1-3); EGFR African American 89.1 (>60); EGFR Non-African American 73.7 (>60); Globulin 2.4 g/dL (2-4); Potassium 4.3 mmol/L (3.5-5.0); Total Bilirubin 0.2 mg/dL (0.2-1.0); Total Protein 5.8 g/dL (6.4-8.9)
[2019-02-27] MEDS: Pantoprazole IV* 40 MG IV SCH (07:52)
[2019-02-27] MEDS: Nicotine PATCH 21 MG/24 HR* PATCH TRANSDERM SCH (07:53)
[2019-02-27] MEDS: Lisinopril TAB* 10 MG PO SCH (07:53)
[2019-02-27] MEDS: oxyCODONE TAB* 5 MG TAB PO PRN ×2 (07:53→17:55)
[2019-02-27] MEDS: HydroxyUREA CAP* 500 MG CAP PO SCH (07:57)
[2019-02-27] MEDS: NS 0.9% 1000 ML** 1,000 ML IV SCH (08:03)
[2019-02-27] MEDS ORDERED: Docusate CAP* 100 MG PO SCH (10:00)
[2019-02-27] MEDS ORDERED: Multivitamins/Minerals TAB PO SCH (10:47)
--- NOTE | 2019-02-27 10:57 | DS ---
- Discharge Summary Admission Date: 02/25/2019 Discharge Date: 02/27/2019 Discharge Diagnosis: 1. GI Bleed of unclear source: hem. positive stools, negative EGD, cont. outpatient work-up 2. Iron deficiency anemia secondary to blood loose: blood transfusion today and plan outpatient iron in future 3. ET: resume HU, increase to 500 mg PO BID today, monitor counts 4. Thrombosis: anticoagulation on hold, s/p IVC filter placement 02/26 5. HTN: resume outpatient meds 6. Chronic Pain: cont. PRN oxycodone Discharge Medications: Medication Instructions Recorded Confirmed Type Lisinopril TAB* 20 mg PO DAILY 02/25/19 02/25/19 History Omeprazole 40 mg 02/25/19 History Pravastatin Sodium 40 mg 02/25/19 History Docusate CAP* [Colace Cap*] 200 mg PO DAILY cap 02/27/19 Rx HydroxyUREA CAP* [Hydrea CAP*] 500 mg PO BID #60 cap 02/27/19 Rx Multivitamins/Minerals TAB* 1 tab PO DAILY tab 02/27/19 Rx [Theragran/minerals TAB*] Nicotine PATCH 21 MG/24 HR* 1 patch TRANSDERM DAILY patch 02/27/19 Rx Oxycodone HCl 5 mg PO QID PRN #120 tablet MDD 4 02/27/19 Rx tabs Disposition: home Condition: stable Activity: as tolerated, walking encouraged Diet: heart healthy Hospital Course: Please see admission note for full H&P, however briefly, Mr. Adams is well known to our service due to his diagnosis of ET c/b cytopenias, blood clot, and GI bleed. Mr. Adams was seen initially on 02/22 with labs revealing marked thrombocytosis of HU and severe anemia felt to be related to recurrent bleed, due to his complaint of melena stools. However at that time he accepted only blood transfusions and refused admission for work-up. On 02/25 he was amendable to admission. On admission GI was consulted and an EGD was recommended. His anticoagulation was held and an IVC filter was placed on 02/26. EGD that afternoon was negative for source of the bleed. Today Mr. Adams's is stable for discharge with further GI work-up to occur as an outpatient. He has had a very slow drop in hmct of three percentage points over last 3 days therefore he will receive 2 units of PRBCs prior to discharge. His platelets remain 1.5 million and therefore he will increase his Hydrourea to 500 mg PO BID from daily. Mr. Adams will have repeat labs drawn on 03/[address] Clements of GI on to discuss capsule endoscopy and/or colonoscopy. He will have repeat labs on 03/[address] Cam of hem/on on 03/11. Mr. Adams will resume his home meds and has been counseled on monitoring for recurrent anemia. We will discuss IV iron as an outpatient as well.
[2019-02-27] MEDS ORDERED: oxyCODONE TAB* 5 MG TAB PO ONE (12:19)
[2019-02-27 18:41] VITALS: BP 149/72
[2019-02-27] MEDS ORDERED: HydroxyUREA CAP* 500 MG CAP PO SCH (21:00)
[2019-02-28] MEDS ORDERED: Pantoprazole TAB * 40 MG TAB PO SCH (09:00)
[2019-02-28] MEDS ORDERED: Atorvastatin* 10 MG TAB PO SCH (09:00)
== END 2019-02-27 18:00 | disposition home or self-care (01) | DRG 803 ==
LOC: SSU 10:42
PROVIDERS: ADMIT Internal Medicine Hematology & Oncology; ATTEND Internal Medicine Hematology & Oncology
PROC: 06H03DZ Insertion of Intraluminal Device into Inferior Vena Cava, Percutaneous Approach (ICD-10-PCS; principal; 2019-02-26)
PROC: 0DJ08ZZ Inspection of Upper Intestinal Tract, Via Natural or Artificial Opening Endoscopic (ICD-10-PCS; 2019-02-26)
PROC: 30233N1 Transfusion of Nonautologous Red Blood Cells into Peripheral Vein, Percutaneous Approach (ICD-10-PCS; 2019-02-27)
DX: D50.0 Iron deficiency anemia secondary to blood loss (chronic) (principal); K92.1 Melena; D47.3 Essential (hemorrhagic) thrombocythemia; E78.5 Hyperlipidemia, unspecified; G89.4 Chronic pain syndrome; F17.210 Nicotine dependence, cigarettes, uncomplicated; C61 Malignant neoplasm of prostate; I10 Essential (primary) hypertension; Z90.81 Acquired absence of spleen; Z85.46 Personal history of malignant neoplasm of prostate; Z88.6 Allergy status to analgesic agent; Z72.89 Other problems related to lifestyle; Z80.0 Family history of malignant neoplasm of digestive organs
CPT/HCPCS: 36415; 36430; 37191; 80053; 85025; 85060; 86850; 86900; 86901; 86922; 99156; 99157; 99214; 99222; 99239; A9270-GY; C1880; G0463; J1644; J2250; J3010; P9040; Q9967

== ENCOUNTER → 2019-04-26 07:36 | Day surgery (SDC) | payer MEDICARE, MEDICAID ==
[~2019-04-26 07:36] MED LIST: Buffered Lidocaine 1% SYRIN* 1 ML/SYRINGE INTRADERM ONE; Lactated Ringers 1000 ML Bag* 1,000 ML IV SCH; Lidocaine 2% PF * 5 ML VIAL ONE; Midazolam* 1 MG/ML 2 ML VIAL (2 MG) ONE; Midazolam* 1 MG/ML 5 ML VIAL (5 MG) ONE; Ondansetron INJ* 2 MG/ML VIAL ONE; Propofol* 10 MG/ML 20 ML BTL ONE
[2019-04-26 11:28] VITALS: BP 137/74
--- NOTE | 2019-04-27 04:52 | PRO ---
CC: Dr. Susan Cam; Camila Benjamin NP PUSH ENTEROSCOPY REPORT: DATE OF PROCEDURE: 04/26/19 PRIMARY CARE PHYSICIAN: Camila Benjamin NP INDICATION FOR PROCEDURE: Iron deficiency anemia due to chronic blood loss and AVMs visualized on ca psule. PROCEDURE PERFORMED: Push enteroscopy to proximal jejunum with ablation of 8 AVMs in the small bowel and 1 AVM in the stomach with APC. MEDICATIONS GIVEN: Please see anesthesia record. DESCRIPTION OF PROCEDURE: After the push enteroscopy procedure including the risks, benefits, and al ternatives with the risks not limited to perforation, surgery, missed lesions, and/or were expl ained to the patient, written informed consent was obtained. IV medication was given and a bite bloc k was placed between the teeth. The pediatric Olympus colonoscope was then inserted into the patient 's oropharynx into the tubular esophagus. A tubular esophagus was normal in appearance. The scope w as entered was then continued through the lower esophageal sphincter into the stomach. Direct views were normal. On retroflexion one small AVM was identified this was ablated with APC at 25 watt with good effect. The scope was then advanced through the widely patent pylorus into the duodenal bulb, C loop, and distal duodenum and into the proximal jejunum. A total of 8 AVMs were ablated with 25 allyssa ts with good effect. I pushed into the proximal jejunum. The majority of these AVMs were all within the duodenum. The jejunum did appear clear, which correlate with the findings on the capsule endosc opy. The scope was then removed from the patient. He tolerated the procedure well. He returned to the recovery room in stable condition. IMPRESSION: 1. Push enteroscopy to the proximal jejunum. 2. Nine AVMs ablated as above. RECOMMENDATIONS: Discussed that he likely will have more AVMs in the future. At this point, he does not appear to have an active GI bleed. If anticoagulation is desired can be reasonable to do so; ho wever, if he rebleeds again, we will consider repeat push enteroscopy versus holding the anticoagulat ion. He can follow up with Dr. Cam for further management and if he has any decrease in his blood count significantly feel free to contact me for consideration of repeat enteroscopy. [id number]/[facility] #: [id number]
== END | disposition home or self-care (01) ==
LOC: OR 07:36
PROVIDERS: ATTEND Internal Medicine Gastroenterology
DX: K31.819 Angiodysplasia of stomach and duodenum without bleeding (principal); D50.0 Iron deficiency anemia secondary to blood loss (chronic); D47.3 Essential (hemorrhagic) thrombocythemia; R93.3 Abnormal findings on diagnostic imaging of other parts of digestive tract; Z85.46 Personal history of malignant neoplasm of prostate; I73.9 Peripheral vascular disease, unspecified; Z72.0 Tobacco use; Z79.82 Long term (current) use of aspirin
CPT/HCPCS: J2250; J2405; J2704

== ENCOUNTER → 2019-07-26 06:45 | Day surgery (SDC) | payer MEDICARE, MEDICAID ==
[~2019-07-26 06:45] MED LIST changes: -Buffered Lidocaine 1% SYRIN* 1 ML/SYRINGE INTRADERM ONE; +Flumazenil* 0.1 MG/ML 5 ML MDV ONE; +Heparin 2 UNITS/ML IVPREMIX* 1,000 ML IV ONE; +Iohexol 350 (CONTRAST) 200 ML MDV IV ONE; +LORazepam TAB(*) 1 MG ONE; -Lactated Ringers 1000 ML Bag* 1,000 ML IV SCH; +Lidocaine 1% INJ* 10 MG/ML 30 ML SDV ONE; -Lidocaine 2% PF * 5 ML VIAL ONE; -Midazolam* 1 MG/ML 2 ML VIAL (2 MG) ONE; +Naloxone* 0.4 MG/ML 1 ML VIAL ONE; -Ondansetron INJ* 2 MG/ML VIAL ONE; -Propofol* 10 MG/ML 20 ML BTL ONE; +fentaNYL* 50 MCG/ML 2 ML VIAL (100 MCG VIAL) ONE
[2019-07-26 11:29] VITALS: BP 156/80
== END | disposition home or self-care (01) ==
LOC: CHICATH 06:45
PROVIDERS: ATTEND Radiology Diagnostic Radiology
DX: Z09 Encounter for follow-up examination after completed treatment for conditions other than malignant neoplasm (principal); Z86.718 Personal history of other venous thrombosis and embolism; D64.9 Anemia, unspecified; D47.3 Essential (hemorrhagic) thrombocythemia; C61 Malignant neoplasm of prostate
CPT/HCPCS: 37193; 75825; 76937; 88300; 99156; 99157; A9270-GY; C1769; C1887; C1894; J1644; J2250; J2310; J3010